=== PATIENT | female | born 1970 | race Caucasian/White ===

== ENCOUNTER 2021-10-05 09:26 | Emergency (ER) | payer OTHER ==
[~2021-10-05] VITALS: Ht 170.2 cm; Wt 63.6 kg
[2021-10-05 09:53] VITALS: TEMP 98.7
[2021-10-05] MEDS ORDERED: LOPRESSOR 225 MG/TAB PO ×2 (10:00→10:49)
[2021-10-05] MEDS ORDERED: NATURAL IRON65 MG PO (10:03)
[2021-10-05] MEDS ORDERED: LEVEMIR100 U/ML SQ ×2 (10:03→10:49)
[2021-10-05] MEDS ORDERED: DOXYCYCLINE 10100 MG PO (10:49)
[2021-10-05 11:30] VITALS: BP 126/77; PULSE 77
== END 2021-10-05 11:30 | disposition home or self-care (01) ==
LOC: COL.ER 09:26
DX: L03.031 Cellulitis of right toe (principal); E11.9 Type 2 diabetes mellitus without complications; Z88.0 Allergy status to penicillin; Z79.4 Long term (current) use of insulin
CPT/HCPCS: J1815

== ENCOUNTER 2023-01-19 10:12 | Inpatient (IN) | payer OTHER ==
[~2023-01-19] VITALS: Ht 170.2 cm; Wt 61.2 kg
[2023-01-19] VITALS (562 sets, daily range): BP systolic 128–140; BP diastolic 72–88; PULSE 107–117; TEMP 97.4–98.4; O2SAT 90–100
[~2023-01-19 10:12] MED LIST: B-12 500 MCG PO; B-D SAFETY GLID1 DE1 SQ; BD ALCOHOL1 SWA MC; DOXYCYCLINE 10100 MG PO; FREESTYLE PREC1 EAC5 MC; GLUCAGON EMERGEN1 M1 SQ; GLUCOSE TEST ST1 DEV MC; LANCETS MC; LEVEMIR100 U/ML SQ; LOPRESSOR 225 MG/TAB PO; MULTI VITAMINS1 TAB; NATURAL IRON65 MG PO; NIX CREME RINSE60 M1 TP; NOVOLOG 100U100 U/M1 SQ
[2023-01-19 10:45] LABS: HEMATOCRIT 44.9 % (37.0-47.0); HEMOGLOBIN 13.4 g/dl (12.5-16.0); MEAN CELL VOLUME 100 fl (80.0-100.0); MEAN CORPUSCULAR HEMOGLOBIN 30 pg (27-31); MEAN CORPUSCULAR HGB CONC 30 g/dl (33.0-37.0); MEAN PLATELET VOLUME 11.1 fl (7.4-10.4); PLATELET COUNT 361 K/mm3 (130-400); RED BLOOD COUNT 4.48 M/mm3 (4.10-5.30); REDCELL DISTRIBUTION WIDTH-CV 13.4 % (11.5-14.5)
[2023-01-19 11:04] LABS: ACETONE,SERUM LARGE
[2023-01-19 11:20] LABS: ALANINE AMINOTRANSFERASE 13 U/L (0-55); ALBUMIN 3.3 gm/dL (3.5-5.0); AST,SGOT 12 U/L (5-34); BILIRUBIN,TOTAL 0.2 mg/dL (0.2-1.2); BLOOD UREA NITROGEN 17 mg/dL (10-20); CALCIUM 8.9 mg/dL (8.4-10.2); CHLORIDE 102 mmol/L (98-107); LIPASE 30 U/L (8-78); POTASSIUM 4.6 mmol/L (3.5-4.5); SODIUM 135 mmol/L (136-145); TOTAL PROTEIN 8.3 gm/dL (6.2-8.1)
[2023-01-19 11:23] LABS: CARBON DIOXIDE < 5 mmol/L (22-29); GLUCOSE 546 mg/dL (70-99)
[2023-01-19 11:30] LABS: TROPONIN-I < 0.010 ng/mL (0.00-0.033)
[2023-01-19 11:38] LABS: ALKALINE PHOSPHATASE 182 U/L (40-150)
[2023-01-19 12:17] LABS: COLLECTION METHOD CLEAN CATCH
[2023-01-19 12:30] LABS: BAND 17 % (0-10); LYMPHOCYTE 26 % (20.0-51.0); METAMYELOCYTE 3 % (0-0); NEUTROPHILS 54 % (42.0-75.2); PLATELET ESTIMATE NORMAL (NORMAL)
[2023-01-19 12:48] LABS: URINE APPEARANCE Clear (CLEAR/HAZY); URINE COLOR Colorless (YELLOW)
[2023-01-19 12:49] LABS: URINE BLOOD TRACE-INTACT (NEGATIVE); URINE GLUCOSE 2+ (NEGATIVE); URINE KETONE 4+ (NEGATIVE); URINE NITRATE Negative (NEGATIVE); URINE PROTEIN(semi-quant) 1+ (NEGATIVE); URINE UROBILINOGEN 0.2 E.U/dL (0.2-1.0)
[2023-01-19 12:50] LABS: SQUAMOUS EPITHELIAL 0-2 /hpf (0-10); URINE RBC 0-2 /hpf (0-2)
[2023-01-19 14:58] LABS: CALCIUM 9.1 mg/dL (8.4-10.2); CREATININE, serum 1.51 mg/dL (0.57-1.11)
[2023-01-19 18:41] LABS: CALCIUM 8.6 mg/dL (8.4-10.2); CREATININE, serum 1.23 mg/dL (0.57-1.11); POTASSIUM 3.2 mmol/L (3.5-4.5)
[2023-01-19 19:42] LABS: ARTERIAL BLD GAS TCO2 CT 14.7; ARTERIAL BLOOD GAS BASE EXCESS -10.9 (-2-2); ARTERIAL BLOOD GAS HCO3 13.8 meq/L (22-26); ARTERIAL BLOOD GAS PCO2 27.6 mmHg (35-45); ARTERIAL BLOOD GAS PO2 90.4 mmHg (80-100); ARTERIAL BLOOD GAS pH 7.32 (7.35-7.45)
--- NOTE | 2023-01-19 20:15 | NUR ---
CHARGE NURSE AND SUPERVISOR OF WAY NOTIFIED THAT PATIENT HAS ACTIVE HEAD LICE. PT HAS ALSO BEEN TREATED FOR RING WORM AND BED BUGS IN THE PAST MONTH. PT'S BELONGINGS DOUBLE BAGGED. YELLOW BAGS REQUESTED FROM [facility]S FOR LINENS.
[2023-01-19 22:19] LABS: CALCIUM 8.3 mg/dL (8.4-10.2); CREATININE, serum 1.18 mg/dL (0.57-1.11); POTASSIUM 3.2 mmol/L (3.5-4.5)
[2023-01-20] VITALS (1170 sets, daily range): BP systolic 118–160; BP diastolic 74–93; PULSE 102–109; TEMP 98.4–99.2; O2SAT 83–100
--- NOTE | 2023-01-20 01:00 | NUR ---
INSULIN DRIP HELD FOR 30 MINUTES. SEE DRIP TITRATION FOR NEW RATE.
--- NOTE | 2023-01-20 01:24 | NUR ---
HEAD LICE TREATMENT WAS PERFORMED. THIS NURSE WAS UNABLE TO REMOVE ALL OF THE NITS IN THE PATIENTS HAIR DUE TO THE LARGE VOLUME OF NITS. JUNE ADULTS WERE COMBED OUT AFTER TREATMENT WAS APPLIED. PT WAS GIVEN A CHG BATH WHILE ON THE C PATIENT'S BEDDING, GOWN, SCD'S, SOCKS & MONITORING EQUIPMENT CHANGED. PATIENT MAY REQUIR FOLLOW UP TREATMENT.
[2023-01-20 01:48] LABS: CALCIUM 8.2 mg/dL (8.4-10.2); CREATININE, serum 0.9 mg/dL (0.57-1.11); POTASSIUM 3.4 mmol/L (3.5-4.5)
[2023-01-20 04:26] LABS: CALCIUM 8.1 mg/dL (8.4-10.2); CREATININE, serum 0.86 mg/dL (0.57-1.11); POTASSIUM 3.2 mmol/L (3.5-4.5)
--- NOTE | 2023-01-20 05:24 | NUR ---
PT STATES SHE HAS GLASSES BUT SHE CAN'T SEE WITH THEM. NEEDS HELP READING THE MENU TO ORDER. MECHANICAL SOFT ADDED TO DIET. PT DOESN'T HAVE ANY TEETH.
--- NOTE | 2023-01-20 06:30 | NUR ---
Report received from ARDEN Millan; patient currently resting in bed with insulin and D5 with 20 mEq of K+ running through her peripheral line; patient has another INT in place. Patient is on room air; no other lines or tubes are in place at this time. Patient is slightly tachycardic this morning with heart rates in between 95-110. All other vital signs are within normal limits.
[2023-01-20 06:42] LABS: BASO % 0.2 % (0.0-2.0); EOS # 0.1 K/mm3 (0.0-0.7); EOS % 1.5 % (0.0-4.0); GRAN # 5.9 K/mm3 (1.4-6.5); GRAN % 72.4 % (42.2-75.2); LYMPH # 1.3 K/mm3 (1.2-3.4); LYMPH % 16.4 % (20.0-51.0); MEAN CORPUSCULAR HGB CONC 35 g/dl (33.0-37.0); MONO # 0.7 K/mm3 (0.1-0.6); MONO % 8.8 % (1.7-9.3); RED BLOOD COUNT 2.98 M/mm3 (4.10-5.30); REDCELL DISTRIBUTION WIDTH-CV 13.3 % (11.5-14.5)
--- NOTE | 2023-01-20 06:42 | NUR ---
REMAINS STABLE ON ROUNDS. RESPIRATIONS EVEN AND UNLABORED. NO SIGN OF DISTRESSS AT THIS TIME. NO LIVE HEAD LICE SEEN AT THIS TIME. A LARGE AMOUNT OF NITS REMAIN. REMAINS ON INSULIN DRIP. DRIP WAS PAUSE FOR 30 MINUTES AT 0100 AND 0400. DRIP CURRENTLY AT 6 UNITS/HR. WILL CONTINUE TO MONITOR.
[2023-01-20 06:48] LABS: HEMATOCRIT 26.4 % (37.0-47.0); HEMOGLOBIN 9.1 g/dl (12.5-16.0); MEAN CELL VOLUME 89 fl (80.0-100.0); MEAN CORPUSCULAR HEMOGLOBIN 31 pg (27-31); PLATELET COUNT 231 K/mm3 (130-400)
[2023-01-20 06:59] LABS: CALCIUM 7.9 mg/dL (8.4-10.2); CREATININE, serum 0.78 mg/dL (0.57-1.11); POTASSIUM 3.4 mmol/L (3.5-4.5)
[2023-01-20] MEDS ORDERED: CLEOCIN HCL300 MG PO (09:45)
[2023-01-20] MEDS ORDERED: NOVOLOG 100U100 U/M1 SQ (09:46)
[2023-01-20] MEDS ORDERED: LEVEMIR100 U/ML SQ (09:46)
--- NOTE | 2023-01-20 09:54 | NUR ---
BAYRON called pt's NOK Abdi Spencer (updated number [phone]) to complete intake due to extra precautions with pt. NOK confirmed pt lives in [place] with him. Pt currently does not have PCP because many are not taking insurance ([employer]) and/or new pts. BAYRON left PCP list with Nurse. Pt does not use o2 or DME. Pt has stairs leading into home but does not typically have issues.Pt uses [facility] in [place] withou issues. Pt does not have DPOA but NOK would like to look over and decide. BAYRON left forms with nurse. Pt will D/C home with spouse. BAYRON left resource list with Nurse.
[2023-01-20 10:01] LABS: CALCIUM 8.4 mg/dL (8.4-10.2); CREATININE, serum 0.96 mg/dL (0.57-1.11); POTASSIUM 3.6 mmol/L (3.5-4.5)
[2023-01-20 12:48] LABS: CREATININE, serum 0.8 mg/dL (0.57-1.11); POTASSIUM 3.4 mmol/L (3.5-4.5)
[2023-01-20 16:28] LABS: CALCIUM 8.3 mg/dL (8.4-10.2); CREATININE, serum 0.83 mg/dL (0.57-1.11); POTASSIUM 3.5 mmol/L (3.5-4.5)
--- NOTE | 2023-01-20 20:15 | NUR ---
Patient resting quietly in bed watching TV. Patient denies pain or discomfort. Vitals within normal limits. Continues to receive IVF; no other medications or drips infusing at this time. Call light within reach. No further needs noted.
[2023-01-21] VITALS: BP 129/75; PULSE 94; TEMP 99
[2023-01-21 04:00] VITALS: BP 135/81; PULSE 106; TEMP 99.5
[2023-01-21 05:12] LABS: BASO % 0.2 % (0.0-2.0); EOS # 0.2 K/mm3 (0.0-0.7); EOS % 3.1 % (0.0-4.0); GRAN % 60.6 % (42.2-75.2); LYMPH # 1.7 K/mm3 (1.2-3.4); MEAN CELL VOLUME 91 fl (80.0-100.0); MEAN CORPUSCULAR HGB CONC 33 g/dl (33.0-37.0); MEAN PLATELET VOLUME 10.2 fl (7.4-10.4); MONO # 0.6 K/mm3 (0.1-0.6); MONO % 9.5 % (1.7-9.3); PLATELET COUNT 204 K/mm3 (130-400); RED BLOOD COUNT 3.19 M/mm3 (4.10-5.30); REDCELL DISTRIBUTION WIDTH-CV 13.9 % (11.5-14.5)
[2023-01-21 05:15] LABS: HEMATOCRIT 28.9 % (37.0-47.0); HEMOGLOBIN 9.6 g/dl (12.5-16.0); MEAN CORPUSCULAR HEMOGLOBIN 30 pg (27-31)
[2023-01-21 05:30] LABS: ALBUMIN 2.2 gm/dL (3.5-5.0); CREATININE, serum 0.65 mg/dL (0.57-1.11); MAGNESIUM 1.6 mg/dL (1.6-2.6); PHOSPHOROUS 1.9 mg/dL (2.3-4.7); POTASSIUM 3.4 mmol/L (3.5-4.5)
[2023-01-21 08:00] VITALS: BP 138/68; PULSE 64; TEMP 98.1
--- NOTE | 2023-01-21 08:56 | NUR ---
Embosser Operator collaborated with Treatment Team to assess Patient for discharge readiness. Physician anticipates that Patient can discharge home pending lab results.
[2023-01-21] MEDS ORDERED: GLUCOSE TEST ST1 DEV MC (10:09)
[2023-01-21] MEDS ORDERED: NIX CREME RINSE60 M1 TP (10:09)
[2023-01-21] MEDS ORDERED: BD ALCOHOL1 SWA MC (10:09)
[2023-01-21] MEDS ORDERED: LANCETS MC (10:09)
[2023-01-21] MEDS ORDERED: B-D SAFETY GLID1 DE1 SQ (10:09)
--- NOTE | 2023-01-21 10:16 | NUR ---
Ophthalmology Technician submitted an APS report Ref #[id number] for infestation in Patient's home.
--- NOTE | 2023-01-21 10:40 | NUR ---
Assistant Drafter submitted a CPS Report # [id number].
--- NOTE | 2023-01-21 11:08 | NUR ---
1000 DISCHARGE INSTRUCTIONS REVIEWED WITH PT. PT CALLED AT THIS TIME. STATES HE WILL PICK PT UP ON WAY HOME. 1046 PT WHEELED OUT IN WC. PT STATED SHE HAD BLACK CROCS BUT COULD NOT FIND THEN. PT STATED HER MAY HAVE TAKEN THEM HOME. WHEN WHEELED OUT TO , STATED HE DID NOT TAKE THEM. THIS NURSE THEN CAME BACK RECHECKED ROOM, LOOKED IN DIRTY UTILITY ROOM IN ICU AND ER. SPOKE WITH ER NURSE THEY DID NOT SEE THEM. TOLD I WOULD REPORT THIS TO MY GEAR STRAIGHTENER AND WOULD FOLLOW UP WITH THEM REGARDING MISSING CROCS. STATES THEY WERE BLACK SIZE 9.
--- NOTE | 2023-01-21 11:12 | NUR ---
Chemical Processing Technician met with Patient at bedside at Patient's request. Patient states that she needs assistance with PCP for her and her children. Patient requested assistance with contact information at [facility]. SW provided contact information on [facility] and [facility]. Patient reports having Lice and ringworm in the home as well as bedbugs recently. Patient is willing to work with [facility] for assistance.
== END 2023-01-21 10:46 | disposition home or self-care (01) | DRG 638 ==
LOC: COL.ER 10:12 → ICU 11:24
PROVIDERS: Emergency Medicine; ADMIT Internal Medicine
DX: E11.10 Type 2 diabetes mellitus with ketoacidosis without coma (principal); N17.9 Acute kidney failure, unspecified; E86.0 Dehydration; E11.65 Type 2 diabetes mellitus with hyperglycemia; Z20.822 Contact with and (suspected) exposure to COVID-19; J02.0 Streptococcal pharyngitis; B85.2 Pediculosis, unspecified; I10 Essential (primary) hypertension; Z88.0 Allergy status to penicillin; Z88.2 Allergy status to sulfonamides; Z79.4 Long term (current) use of insulin; Z79.899 Other long term (current) drug therapy
CPT/HCPCS: J0737; J1815; J3480; J7030; J7120

== ENCOUNTER 2023-03-28 11:22 | Inpatient (IN) | payer SELFPAY ==
[2023-03-28] VITALS (523 sets, daily range): BP systolic 120–129; BP diastolic 75–80; PULSE 100–105; TEMP 97.4–97.7; O2SAT 94–100
[~2023-03-28] VITALS: Ht 167.6 cm; Wt 63.0 kg
[~2023-03-28 11:22] MED LIST changes: +CLEOCIN HCL300 MG PO
[2023-03-28] MEDS ORDERED: LR 1,000 ML IV ONE (11:30)
[2023-03-28 12:04] LABS: HEMOGLOBIN 10.5 g/dl (12.5-16.0); MEAN CELL VOLUME 98 fl (80.0-100.0); MEAN CORPUSCULAR HEMOGLOBIN 28 pg (27-31); MEAN CORPUSCULAR HGB CONC 29 g/dl (33.0-37.0); MEAN PLATELET VOLUME 10.1 fl (7.4-10.4); PLATELET COUNT 368 K/mm3 (130-400); RED BLOOD COUNT 3.74 M/mm3 (4.10-5.30); REDCELL DISTRIBUTION WIDTH-CV 13.3 % (11.5-14.5)
[2023-03-28 12:08] LABS: HEMATOCRIT 36.7 % (37.0-47.0)
[2023-03-28] MEDS ORDERED: Insulin Human Regular/NS 100 ML IV ONE (12:15)
[2023-03-28 12:17] LABS: ALANINE AMINOTRANSFERASE 9 U/L (0-55); ALBUMIN 2.9 gm/dL (3.5-5.0); ALKALINE PHOSPHATASE 158 U/L (40-150); AST,SGOT 11 U/L (5-34); BILIRUBIN,TOTAL 0.2 mg/dL (0.2-1.2); BLOOD UREA NITROGEN 13 mg/dL (10-20); CHLORIDE 104 mmol/L (98-107); CREATININE, serum 1.33 mg/dL (0.57-1.11); LIPASE 42 U/L (8-78); SODIUM 131 mmol/L (136-145); TOTAL PROTEIN 8.1 gm/dL (6.2-8.1)
[2023-03-28 12:19] LABS: CARBON DIOXIDE < 6 mmol/L (22-29); GLUCOSE 411 mg/dL (70-99)
[2023-03-28 12:21] LABS: ACETONE,SERUM MODERATE
[2023-03-28 12:27] LABS: BAND 6 % (0-10); LYMPHOCYTE 23 % (20.0-51.0); METAMYELOCYTE 2 % (0-0); NEUTROPHILS 67 % (42.0-75.2); PLATELET ESTIMATE NORMAL (NORMAL)
[2023-03-28] MEDS ORDERED: NS 1,000 ML IV ONE (12:30)
[2023-03-28] MEDS ORDERED: Insulin Human Regular/NS 100 ML IV SCH (13:45)
[2023-03-28] MEDS ORDERED: NS 1,000 ML IV SCH (13:45)
[2023-03-28] MEDS ORDERED: D5W 1,000 ML IV SCH (13:45)
[2023-03-28] MEDS ORDERED: Pantoprazole 40 MG in NS 10 ML IV SCH (15:30)
--- NOTE | 2023-03-28 15:30 | NUR ---
PATIENT ARRIVED FROM THE ED ON A STRETCHER. SHE WAS ABLE TO MOVE TO THE NEW BED WITH SOME ASSISTANCE. PT DOES APPEAR TO BE A LITTLE DROWSY. SHE WAKES UP WHEN SPOKEN TO AND IS ALERT AND ORIENTED. SHE ANSWERS ALL QUESTIONS APPROPRIATLEY. PT HAS ONE IV INFUSING INSULIN AND NS. PT IS NOT ACCOMPANIED BY FAMILY AT THIS TIME. SHE DOES COMPLAIN OF THROAT PAIN. VITAL SIGNS ARE STABLE.
[2023-03-28 15:33] LABS: PHOSPHOROUS 3.9 mg/dL (2.3-4.7)
[2023-03-28] MEDS ORDERED: Doxycycline Monohydrate 100 MG CAP PO SCH (16:47)
[2023-03-28 17:14] LABS: BLOOD UREA NITROGEN 13 mg/dL (10-20); CALCIUM 8.4 mg/dL (8.4-10.2); CHLORIDE 111 mmol/L (98-107); CREATININE, serum 1.14 mg/dL (0.57-1.11); GLUCOSE 258 mg/dL (70-99); POTASSIUM 3.5 mmol/L (3.5-4.5); SODIUM 133 mmol/L (136-145)
[2023-03-28 17:21] LABS: CARBON DIOXIDE < 6 mmol/L (22-29)
[2023-03-28] MEDS ORDERED: *Potassium Replacement Protocol MC SCH (17:30)
[2023-03-28] MEDS ORDERED: Potassium Bicarbonate/Citrate 20 MEQ Effervescent TAB PO SCH ×2 (17:30→23:45)
--- NOTE | 2023-03-28 18:00 | NUR ---
Per Dr. Davis it is ok to hold off on placing sheikh catheter if patient is able to void on her own.
[2023-03-28 18:13] LABS: COLLECTION METHOD CLEAN CATCH
[2023-03-28 18:55] LABS: BLOOD UREA NITROGEN 11 mg/dL (10-20); CALCIUM 8.3 mg/dL (8.4-10.2); CHLORIDE 112 mmol/L (98-107); CREATININE, serum 1.07 mg/dL (0.57-1.11); GLUCOSE 256 mg/dL (70-99); POTASSIUM 3.4 mmol/L (3.5-4.5); SODIUM 134 mmol/L (136-145)
[2023-03-28 19:00] LABS: CARBON DIOXIDE < 6 mmol/L (22-29)
--- NOTE | 2023-03-28 19:00 | NUR ---
ON INSULIN DRIP. D5W FOR FLUIDS. HOURLY BLOOD SUGAR CHECKS. Q 2HR BMP. MAG WAS ADDED TO UPCOMING BMP. PT CHECKED FOR HEADLICE, RING WORM AND BED BUGS, SHE HAD HEAD LICE HER LAST ADMISSION. PT STATES SHE CAN'T AFFORD HER INSULIN AND IS NOT FOLLOWING A DIABETIC DIET. CONSULTS WERE PLACED AGAIN, BUT PATIENT HAS TO TAKE RESPONSIBILITY FOR HER DISEASE PROCESS. THIS NURSE DISCUSSED WITH HER THAT WE CAN GIVE HER THE TOOLS, BUT SHE MUST BE WILLING TO USE THEM.
[2023-03-28 19:01] LABS: URINE APPEARANCE CLEAR (CLEAR/HAZY); URINE BLOOD 1+ (NEGATIVE); URINE COLOR YELLOW (YELLOW); URINE GLUCOSE 3+ (NEGATIVE); URINE KETONE 4+ (NEGATIVE); URINE NITRATE NEGATIVE (NEGATIVE); URINE PROTEIN(semi-quant) 1+ (NEGATIVE); URINE UROBILINOGEN 0.2 E.U/dL (0.2-1.0)
[2023-03-28 19:05] LABS: TRICYCLIC ANTIDEPRESS URINE NEGATIVE (NEGATIVE)
[2023-03-28 19:35] LABS: URINE RBC 0-2 /hpf (0-2); URINE WBC 0-2 /hpf (0-2)
[2023-03-28 19:36] LABS: URINE BACTERIA MODERATE /hpf (NONE SEEN)
[2023-03-28 20:19] LABS: CALCIUM 7.7 mg/dL (8.4-10.2); CREATININE, serum 0.98 mg/dL (0.57-1.11); MAGNESIUM 1.6 mg/dL (1.6-2.6); POTASSIUM 3.3 mmol/L (3.5-4.5)
[2023-03-28 22:19] LABS: CALCIUM 8.2 mg/dL (8.4-10.2); CREATININE, serum 1.05 mg/dL (0.57-1.11); POTASSIUM 3.2 mmol/L (3.5-4.5)
[2023-03-29] VITALS (853 sets, daily range): BP systolic 113–137; BP diastolic 69–85; PULSE 104–115; TEMP 97.4–98.6; O2SAT 92–100
[2023-03-29] MEDS ORDERED: Acetaminophen 325 MG TAB PO PRN (00:45)
[2023-03-29 01:55] LABS: CALCIUM 8.4 mg/dL (8.4-10.2); CREATININE, serum 1.01 mg/dL (0.57-1.11); POTASSIUM 3.1 mmol/L (3.5-4.5)
[2023-03-29 04:09] LABS: MEAN CORPUSCULAR HGB CONC 33 g/dl (33.0-37.0); MEAN PLATELET VOLUME 9.4 fl (7.4-10.4); RED BLOOD COUNT 2.98 M/mm3 (4.10-5.30); REDCELL DISTRIBUTION WIDTH-CV 13.1 % (11.5-14.5)
[2023-03-29 04:16] LABS: HEMATOCRIT 25.4 % (37.0-47.0); MEAN CELL VOLUME 85 fl (80.0-100.0); MEAN CORPUSCULAR HEMOGLOBIN 28 pg (27-31)
[2023-03-29 04:17] LABS: HEMOGLOBIN 8.4 g/dl (12.5-16.0); PLATELET COUNT 252 K/mm3 (130-400)
[2023-03-29 04:43] LABS: BAND 6 % (0-10); LYMPHOCYTE 10 % (20.0-51.0); NEUTROPHILS 77 % (42.0-75.2); PLATELET ESTIMATE NORMAL (NORMAL)
[2023-03-29 04:55] LABS: CALCIUM 8.7 mg/dL (8.4-10.2); CREATININE, serum 0.92 mg/dL (0.57-1.11); POTASSIUM 3.3 mmol/L (3.5-4.5)
[2023-03-29] MEDS ORDERED: Potassium Bicarbonate/Citrate 20 MEQ Effervescent TAB PO SCH ×2 (05:30→19:45)
[2023-03-29 06:17] LABS: CALCIUM 8.8 mg/dL (8.4-10.2); CREATININE, serum 0.89 mg/dL (0.57-1.11); POTASSIUM 3.2 mmol/L (3.5-4.5)
--- NOTE | 2023-03-29 06:17 | NUR ---
PT REMAINS STABLE ON ROUNDS. INSULIN AND GLUCOSE DRIPS INFUSING. GAP CLOSED AT 7. CO2 15, TRENDING TOWARD NORMAL. CRITICAL CO2'S NOT CALLED THEY WERE EXPECTED VALUES. PROVIDED CALLED OVER NIGHT FOR TYLENOL ORDER. CALLED THIS AM TO CHANGE BMP FROM FARHAT 2HR TO EVERY 4HR. Q 4HR BMP TO STOP AT 2200 03/29/23. WILL DISCUSS WITH DAYSHIFT RN THAT STOP TIME OF BMP. NO SIGN OF DISTRESS AT THIS TIME.
--- NOTE | 2023-03-29 07:00 | NUR ---
REPORT RECEIVED FROM ARDEN GANDARA. PT RESTING IN BED, VSS. INSULIN AND FLUIDS INFUSING ORDERED TO PERIPHERAL IV IN L WRIST. PT IS DROWSY BUT WAKES EASILY AND IS ORIENTED. USES CALL LIGHT FOR NEEDS.
--- NOTE | 2023-03-29 09:13 | NUR ---
wood and wood products factory worker met with patient to discuss discharge planning. Pt reports she lives in [place] with 8 other people. She states her NOK, is , Abdi [phone]. Pt does not have a PCP, but is aware of the wellness clinic and [facility]. Pt obtains medications from [facility] with difficulties. She recently lost her insurance and cannot afford her insulin. SW advised [facility] and patient states she uses this. She reports she was informed by that the [facility] can assist with low cost insulin. Pt reports she is independent with ADLS and uses no DME, but wants a cane and knows how to obtain one. Pt does not have a DPOA-HC and declined one at this time. Pt was informed PT/OT will visit with her to asses mobility. PT/OT pending BAYRON left a voicemail to Supervisor Television Chassis Repair Reyna to inform pt has no insurance. Discharge Plan: TBD
[2023-03-29] MEDS ORDERED: MAG DELAY64 M1 PO (09:55)
[2023-03-29] MEDS ORDERED: VITAMIN D 400400 IU PO (09:55)
[2023-03-29] MEDS ORDERED: Glucagon 1 MG VIAL IM PRN (11:00)
[2023-03-29] MEDS ORDERED: Dextrose (Glucose) 15 GM (4 x 3.75 GM) Chewable TABLET PACK PO PRN (11:00)
[2023-03-29] MEDS ORDERED: Dextrose 50% Water 25 GM/50 ML SYRINGE IV PRN (11:00)
[2023-03-29 11:01] LABS: CALCIUM 9.3 mg/dL (8.4-10.2); CREATININE, serum 0.85 mg/dL (0.57-1.11); POTASSIUM 3.8 mmol/L (3.5-4.5)
--- NOTE | 2023-03-29 11:06 | NUR ---
DISCUSSED WITH PATIENT THE BENEFIT OF A CGM WHEN SHE GETS INSURANCE, SHE HAS APPLIED FOR IT AND IT IS PROCESSING. PATIENT STATED SHE DIDNT KNOW IF SHE WOULD WANT THAT THING STUCK IN HER ARM ALL THE TIME. EDUCATED PATIENT ON HEALTHY SNACKS SHE CAN EAT AT HOME. GAVE PATIENT A CONTOUR NEXT MACHINE TO TAKE HOME AND USE UPON DISCHARGE. SHE STATES SHE CANT AFFORD HER INSULIN SO SHE ONLY TAKES IT EVERY OTHER DAY AND TRIES TO EAT HEALTHY SHE CAN ON A BUDGET. REFERRAL REQUEST FOR OUTPATIENT SENT TO [facility] SHE IS SUSEPTABLE TO COMING IN AND SEEING US OUTPATIENT WHEN SHE GETS D/DANY. ARRON, MSN, RN
[2023-03-29] MEDS ORDERED: Insulin Aspart (NovoLOG) SQ SCH ×2 (12:00→17:00)
[2023-03-29 14:28] LABS: CREATININE, serum 0.83 mg/dL (0.57-1.11); POTASSIUM 3.9 mmol/L (3.5-4.5)
--- NOTE | 2023-03-29 17:00 | NUR ---
PATENIT ARRIVED TO UNIT AWAKE ALERT AND ORIENTED. VSS. PATIENT DENIES ANY NEEDS OR COMPLAINTS AT THIS TIME. PATEINT ORIENTED TO ROOM. IV ZOSYN INFUSING (SEE EMAR FOR DETAILS).CALL LIGHT WITHIN REACH.
--- NOTE | 2023-03-29 18:30 | NUR ---
BEDSIDE REPORT RECEIVED BY SAULO HER. PATIENT RESTING IN BED WITH FAMILY AT BEDSIDE. PATIENT DENIES ANY NEEDS OR CONCERNS AT THIS TIME.
[2023-03-29 18:42] LABS: CALCIUM 9.1 mg/dL (8.4-10.2); CREATININE, serum 0.8 mg/dL (0.57-1.11); POTASSIUM 3.4 mmol/L (3.5-4.5)
[2023-03-29] MEDS ORDERED: *Potassium Replacement Protocol MC SCH (19:45)
--- NOTE | 2023-03-29 21:00 | NUR ---
PATIENT RESTING IN BED WATCHING TV. ALERT AND ORIENTED. SHIFT ASSESSEMENT COMPLETE. IV MEDICATIONS INFUSING PER MAR VIA LEFT WRIST. NO REDNESS, SWELLING, OR DRAINAGE NOTED. +1 EDEMA TO BLE. PATIENT AMBULATED TO BR. GAIT STEADY. PATINET DENIES PAIN OR DISCOMFORT. WILL MONITOR
[2023-03-29 22:22] LABS: CALCIUM 8.7 mg/dL (8.4-10.2); CREATININE, serum 0.75 mg/dL (0.57-1.11); POTASSIUM 4.1 mmol/L (3.5-4.5)
[2023-03-30 03:19] VITALS: BP 114/74; PULSE 120; TEMP 99.5
--- NOTE | 2023-03-30 05:57 | NUR ---
PATIENT RESTING IN BED. UNEVENTFUL NIGHT. DENIES NEEDS OR CONCERNS AT THIS TIME.
[2023-03-30 06:39] LABS: BASO % 0.5 % (0.0-2.0); EOS # 0.1 K/mm3 (0.0-0.7); EOS % 1.9 % (0.0-4.0); GRAN % 64.9 % (42.2-75.2); LYMPH # 1.3 K/mm3 (1.2-3.4); MEAN CELL VOLUME 87 fl (80.0-100.0); MEAN CORPUSCULAR HGB CONC 32 g/dl (33.0-37.0); MEAN PLATELET VOLUME 9.9 fl (7.4-10.4); MONO # 0.7 K/mm3 (0.1-0.6); MONO % 10.6 % (1.7-9.3); PLATELET COUNT 264 K/mm3 (130-400); RED BLOOD COUNT 3.07 M/mm3 (4.10-5.30); REDCELL DISTRIBUTION WIDTH-CV 13.8 % (11.5-14.5)
[2023-03-30 06:51] LABS: HEMATOCRIT 26.6 % (37.0-47.0); HEMOGLOBIN 8.6 g/dl (12.5-16.0); MEAN CORPUSCULAR HEMOGLOBIN 28 pg (27-31)
--- NOTE | 2023-03-30 06:55 | NUR ---
PT RESTING IN BED WATCHING TV. PT IS ON RA. PT IS SR ON TELE. PT IS AXOX3. PT HAS CALL LIGHT WITHIN REACH AND INSTRUCTED TO CALL [facility] ALL NEEDS.
[2023-03-30 08:05] VITALS: BP 113/63; PULSE 114; TEMP 97.8
[2023-03-30 08:55] VITALS: BP_SYST 113
[2023-03-30 12:13] VITALS: BP 119/76; PULSE 107; TEMP 98.2
[2023-03-30] MEDS ORDERED: GLUCOPHAGE500 MG/TAB PO (12:30)
[2023-03-30] MEDS ORDERED: GLUCAGON EMERGEN1 M1 SQ (12:30)
[2023-03-30] MEDS ORDERED: BD ALCOHOL1 SWA MC (12:37)
[2023-03-30] MEDS ORDERED: GLUCOSE TEST ST1 DEV MC (12:37)
[2023-03-30] MEDS ORDERED: B-D SAFETY GLID1 DE1 SQ (12:37)
[2023-03-30] MEDS ORDERED: LANCETS MC (12:37)
[2023-03-30] MEDS ORDERED: INSULIN GL100 UNIT/1 SQ (12:37)
[2023-03-30] MEDS ORDERED: AMOXICILLIN 8751 TAB PO (12:37)
[2023-03-30] MEDS ORDERED: DOXYCYCLINE 10100 MG PO (12:37)
[2023-03-30] MEDS ORDERED: CONTROL SOLUTI1 EAC1 MC (12:37)
[2023-03-30] MEDS ORDERED: GLUTOSE 1515 GM PO (12:37)
[2023-03-30 13:00] VITALS: BP_SYST 119
[2023-03-30] MEDS ORDERED: LEVAQUIN 750MG750 M1 PO (13:02)
--- NOTE | 2023-03-30 13:53 | NUR ---
BARYON CONTACTED REGARDING MEDICATIONS AND VOUCHER. BAYRON FAXED ALL TO [facility]. PT UPDATED, DIRECTIONS AND PHONE NUMBER FOR [facility] GIVEN TO PT. NARCISA'S DC'D. DISCHARGE INSTRUCTIONS DISCUSSED WITH PT. DISCUSSED THE NEED FOR PT TO MONITOR BLOOD SUGAR AND TREAT ORDERED. ALL QUESTIONS ANSWERED. PT WHEELED OUT FOR DISCHARGE BY SRINATH KUMAR.
--- NOTE | 2023-03-30 16:05 | NUR ---
SW met with patient for intake. Patient shared that she lives with spouse and children in [place]. Pending [employer] application and has recieved FA application for hospital assistance. No current DMEs and independent with ADLs No current PCP - SW provided list and resource list. Voucher for [facility] was issued for medication assist and cost verified was $414. Patient was informed about voucher and also that one medication would not be available until Saturday for supervisor picking crew. Discharge plan: home today with spouse
== END 2023-03-30 14:00 | disposition home or self-care (01) | DRG 637 ==
LOC: COL.ER 11:22 → ICU 13:44 → MEDICAL 03-29 17:21
PROVIDERS: Physician Assistant; ADMIT Internal Medicine
DX: E10.10 Type 1 diabetes mellitus with ketoacidosis without coma (principal); J18.9 Pneumonia, unspecified organism; Z20.822 Contact with and (suspected) exposure to COVID-19; I10 Essential (primary) hypertension; Z88.0 Allergy status to penicillin; Z88.2 Allergy status to sulfonamides; Z79.4 Long term (current) use of insulin; Z79.899 Other long term (current) drug therapy; Z23 Encounter for immunization
CPT/HCPCS: C9113; J1650; J1815; J2543; J7030; J7070; J7120

== ENCOUNTER 2023-05-26 11:35 | Inpatient (IN) | payer OTHER ==
[2023-05-26] VITALS (194 sets, daily range): BP systolic 107–135; BP diastolic 75–79; PULSE 105–117; TEMP 97.8–97.9; O2SAT 86–100
[~2023-05-26] VITALS: Ht 170.2 cm; Wt 61.0 kg
[~2023-05-26 11:35] MED LIST changes: +AMOXICILLIN 8751 TAB PO; +CONTROL SOLUTI1 EAC1 MC; +DUO-KAPS1 CAP PO; +GLUCOPHAGE500 MG/TAB PO; +GLUTOSE 1515 GM PO; +INSULIN GL100 UNIT/1 SQ; +LEVAQUIN 750MG750 M1 PO; +MAG DELAY64 M1 PO; -MULTI VITAMINS1 TAB; +VITAMIN D362.5 MC1 PO
[2023-05-26] MEDS ORDERED: NS 1,000 ML IV ONE (12:00)
[2023-05-26 12:45] LABS: ALANINE AMINOTRANSFERASE 8 U/L (0-55); ALBUMIN 2.8 g/dL (3.5-5.0); ALKALINE PHOSPHATASE 154 U/L (40-150); AST,SGOT 8 U/L (5-34); BILIRUBIN,TOTAL 0.2 mg/dL (0.2-1.2); BLOOD UREA NITROGEN 11 mg/dL (10-20); C-REACTIVE PROTEIN 15.31 mg/dL (0.00-0.50); CALCIUM 9.2 mg/dL (8.4-10.2); CHLORIDE 107 mEq/L (98-107); GLUCOSE 373 mg/dL (70-99); POTASSIUM 4.4 mEq/L (3.5-4.5); SODIUM 134 mEq/L (136-145); TOTAL PROTEIN 8.4 g/dl (6.2-8.1)
[2023-05-26 12:48] LABS: HEMATOCRIT 40.6 % (37.0-47.0); HEMOGLOBIN 11.8 g/dl (12.5-16.0); MEAN CELL VOLUME 90 fl (80.0-100.0); MEAN CORPUSCULAR HEMOGLOBIN 26 pg (27-31); MEAN CORPUSCULAR HGB CONC 29 g/dl (33.0-37.0); PLATELET COUNT 373 K/mm3 (130-400); RED BLOOD COUNT 4.53 M/mm3 (4.10-5.30); REDCELL DISTRIBUTION WIDTH-CV 14.8 % (11.5-14.5)
[2023-05-26 12:50] LABS: TROPONIN-I < 0.010 ng/mL (0.00-0.033)
[2023-05-26] MEDS ORDERED: Insulin Human Regular/NS 100 ML IV ONE (13:00)
[2023-05-26] MEDS ORDERED: LR 1,000 ML IV ONE (13:00)
[2023-05-26 13:24] LABS: BAND 15 % (0-10); BASOPHIL 1 % (0-2); LYMPHOCYTE 17 % (20.0-51.0); METAMYELOCYTE 3 % (0-0); NEUTROPHILS 64 % (42.0-75.2); PLATELET ESTIMATE NORMAL (NORMAL)
[2023-05-26] MEDS ORDERED: Insulin Human Regular/NS 100 ML IV SCH (13:45)
[2023-05-26] MEDS ORDERED: NS 1,000 ML IV SCH ×2 (13:45→14:00)
[2023-05-26] MEDS ORDERED: D5 1/2 NS 1,000 ML IV SCH (13:45)
[2023-05-26] MEDS ORDERED: Oseltamivir 75 MG CAP PO SCH (13:48)
[2023-05-26] MEDS ORDERED: Ondansetron 4 MG/2 ML VIAL IV PRN (14:00)
[2023-05-26] MEDS ORDERED: cefTRIAXone 1 G in Water For Injection,Sterile 10 ML IV ONE (14:00)
[2023-05-26] MEDS ORDERED: Heparin 5,000 UNITS/ML 1 ML VIAL SQ SCH (14:00)
[2023-05-26] MEDS ORDERED: Acetaminophen 500 MG TAB PO PRN (14:00)
[2023-05-26] MEDS ORDERED: INSLANT SQ (14:49)
[2023-05-26 16:47] LABS: CALCIUM 8.3 mg/dL (8.4-10.2); POTASSIUM 3.7 mEq/L (3.5-4.5)
[2023-05-26 18:23] LABS: CALCIUM 8.4 mg/dL (8.4-10.2); CREATININE, serum 1.01 mg/dL (0.57-1.11); POTASSIUM 3.5 mEq/L (3.5-4.5)
[2023-05-26 19:34] LABS: COLLECTION METHOD CLEAN CATCH
--- NOTE | 2023-05-26 19:35 | NUR ---
Received report from ARDEN Jones. Pt is alert and resting in bed with the call light within reach and bed alarms on. Pt has insulin, NS, and D5 1/2 NS running at this time. Pt's vitals are stable at this time. Will continue with pt care.
[2023-05-26 19:45] LABS: URINE APPEARANCE CLEAR (CLEAR/HAZY); URINE BLOOD NEGATIVE (NEGATIVE); URINE COLOR YELLOW (YELLOW); URINE GLUCOSE 3+ (NEGATIVE); URINE KETONE 4+ (NEGATIVE); URINE NITRATE NEGATIVE (NEGATIVE); URINE PROTEIN(semi-quant) 2+ (NEGATIVE); URINE UROBILINOGEN 0.2 E.U/dL (0.2-1.0)
[2023-05-26 20:01] LABS: SQUAMOUS EPITHELIAL 0-2 /hpf (0-10); URINE RBC 0-2 /hpf (0-2); URINE WBC 0-2 /hpf (0-2)
[2023-05-26 20:21] LABS: CALCIUM 8.2 mg/dL (8.4-10.2); CREATININE, serum 1.07 mg/dL (0.57-1.11); POTASSIUM 3.3 mEq/L (3.5-4.5)
[2023-05-26] MEDS ORDERED: *Potassium Replacement Protocol MC SCH (20:30)
[2023-05-26] MEDS ORDERED: Potassium Bicarbonate/Citrate 20 MEQ Effervescent TAB PO SCH (20:30)
[2023-05-26 20:55] LABS: TRICYCLIC ANTIDEPRESS URINE NEGATIVE (NEGATIVE)
[2023-05-26] MEDS ORDERED: Sodium Bicarbonate 650 MG TAB PO SCH (21:00)
[2023-05-26 22:22] LABS: CALCIUM 8.3 mg/dL (8.4-10.2); CREATININE, serum 1.04 mg/dL (0.57-1.11); POTASSIUM 3.3 mEq/L (3.5-4.5)
[2023-05-27] VITALS (650 sets, daily range): BP systolic 126–142; BP diastolic 72–87; PULSE 100–113; TEMP 97.5–99.4; O2SAT 77–100
[2023-05-27 00:12] LABS: CALCIUM 8.2 mg/dL (8.4-10.2); CREATININE, serum 0.99 mg/dL (0.57-1.11); POTASSIUM 3.3 mEq/L (3.5-4.5)
[2023-05-27 04:27] LABS: CALCIUM 8.2 mg/dL (8.4-10.2); CREATININE, serum 0.78 mg/dL (0.57-1.11)
[2023-05-27] MEDS ORDERED: Potassium Bicarbonate/Citrate 20 MEQ Effervescent TAB PO SCH (05:45)
--- NOTE | 2023-05-27 06:49 | NUR ---
Pt had an uneventful night. Pt's vitals have been stable throughout the night. Pt is still on insulin drip with a carrier of NS. D5 1/2 NS is also running at this time. Pt is alert and on room air. Pt is currently resting in bed with the call light within reach and bed alarms on. Will give report to day shift nurse.
[2023-05-27 07:11] LABS: BASO % 0.3 % (0.0-2.0); EOS # 0.1 K/mm3 (0.0-0.7); EOS % 0.9 % (0.0-4.0); GRAN % 71.5 % (42.2-75.2); HEMOGLOBIN 10.1 g/dl (12.5-16.0); LYMPH # 1.3 K/mm3 (1.2-3.4); MEAN CORPUSCULAR HEMOGLOBIN 26 pg (27-31); MEAN CORPUSCULAR HGB CONC 32 g/dl (33.0-37.0); MEAN PLATELET VOLUME 9.4 fl (7.4-10.4); MONO # 0.6 K/mm3 (0.1-0.6); MONO % 8.1 % (1.7-9.3); PLATELET COUNT 281 K/mm3 (130-400); REDCELL DISTRIBUTION WIDTH-CV 14.6 % (11.5-14.5)
[2023-05-27 07:17] LABS: MEAN CELL VOLUME 82 fl (80.0-100.0)
[2023-05-27 07:22] LABS: CALCIUM 8.7 mg/dL (8.4-10.2); CREATININE, serum 0.76 mg/dL (0.57-1.11); POTASSIUM 3.4 mEq/L (3.5-4.5)
[2023-05-27 07:39] LABS: MAGNESIUM 1.6 mg/dL (1.6-2.6); PHOSPHOROUS < 0.9 mg/dL (2.3-4.7)
[2023-05-27] MEDS ORDERED: Multivitamin TAB PO SCH (09:00)
[2023-05-27] MEDS ORDERED: Cyanocobalamin (Vit B-12) 1,000 MCG TAB PO SCH (09:00)
--- NOTE | 2023-05-27 09:04 | NUR ---
Driver Supervisor met with patient at bedside to discuss discharge planning. Patient sitting up in bed, alert and oriented x 4, coughing continuously throughout visit. Patient verified that she lives at home with her Abdi ([phone]) and 6 of their 10 chidren. Patient states she utilizes the health clinic and does not have a PCP at this time. Patient uses [facility] and uses a cane at home as needed. Patient has insurance coverage through [facility] which covers her medications. Patient does not have a DPOA and is not interested in completing one at this time. Patient will discharge to home when medically stable. Discharge Plan: home
[2023-05-27] MEDS ORDERED: Benzonatate 100 MG CAP PO PRN (10:00)
[2023-05-27] MEDS ORDERED: guaiFENesin/Dextromethorphan Oral Soln 200-20 MG/10 ML UD PO PRN (10:00)
[2023-05-27] MEDS ORDERED: Amoxicillin 500 MG CAP PO SCH (10:30)
[2023-05-27 10:43] LABS: CALCIUM 8.1 mg/dL (8.4-10.2); CREATININE, serum 0.71 mg/dL (0.57-1.11); POTASSIUM 3.8 mEq/L (3.5-4.5)
[2023-05-27] MEDS ORDERED: Glucagon 1 MG VIAL IM PRN (12:45)
[2023-05-27] MEDS ORDERED: 1/2 NS 1,000 ML IV SCH (12:45)
[2023-05-27] MEDS ORDERED: Insulin Glargine-ygfn (Lantus) SQ SCH (12:45)
[2023-05-27] MEDS ORDERED: Dextrose 50% Water 25 GM/50 ML SYRINGE IV PRN (12:45)
[2023-05-27] MEDS ORDERED: Dextrose (Glucose) 15 GM (4 x 3.75 GM) Chewable TABLET PACK PO PRN (12:45)
--- NOTE | 2023-05-27 12:58 | NUR ---
RIGHT SIDE THORACENTESIS COMPLETED BY DR. CORONEL ASSISTED BY ANGEL ALCOCER.
--- NOTE | 2023-05-27 13:30 | NUR ---
PATIENT IS A AND O X4 AND ON ROOM AIR. PATIENT IS COUGHING AND COMPLAINS OF A SORE THROAT. NO OTHER PAIN OR COMPLIANTS PER PATIENT. BED IN LOW POSITION AND CALL LIGHT WITHIN REACH. PATIENT WILL BE TRANSFERRING TO MEDICAL FLOOR ONCE RN GIVEN A ROOM. INSULIN GTT IS OFF.
--- NOTE | 2023-05-27 15:30 | NUR ---
PATIENT TRANSFERRED TO [place] [id number]. RN, ANGELINA, CALLED WITH PATIENT REPORT PRIOR TO TRANSFER. PATIENT ALERT AND ORIENTED X4 AND NOT IN DISTRESS UPON TRANSFER. ANGELINA AWARE OF PATIENTS ARRIVAL.
[2023-05-27] MEDS ORDERED: Insulin Lispro (HumaLOG) SQ SCH (17:00)
--- NOTE | 2023-05-27 18:07 | NUR ---
Patient is resting in bed, talking by phone to her son. She is getting fluids per orders. States her glucose levels are chronically high, and now that is 100-160's she feels it is abnormal. States she has some problems in her throat and left ear while swallowing. Refuses any pain med at this time. Report will be given to night RN.
--- NOTE | 2023-05-27 20:30 | NUR ---
UPON ASSESSMENT, JCARLOS WAS AWAKE AND AXOX 4 IN BED . BG 202- 6 UNITS NOVOLOG GIVEN. PATIENT HAD SEVERAL TISSUES WITH SPUTUM BEDSIDE. NO EVIDENCE OF HEMOPYSIS. PATIENT STATES THROAT SORENESS HAS IMPROVED AND AIRWAY IS PATENT. SHE DENIES SOA. VS ARE WNL NO FURTHER NEEDS STATED AT THIS TIME. CALL LIGHT WITHIN REACH.
--- NOTE | 2023-05-27 20:30 | NUR ---
ALERTED BY PCT, PATIENT C/O LEAKING IV SITE. ENTERED PATIENT'S ROOM RT AC LEAKING 1/2 NS, SWITCHED TO LT WRIST. NO FURTHER COMPLICATIONS NOTED.
[2023-05-27 23:09] LABS: CREATININE, serum 0.63 mg/dL (0.57-1.11); POTASSIUM 3.5 mEq/L (3.5-4.5)
[2023-05-27] MEDS ORDERED: Potassium Bicarbonate/Citrate 20 MEQ Effervescent TAB PO ONE (23:15)
[2023-05-27] MEDS ORDERED: *Potassium Replacement Protocol MC SCH (23:15)
[2023-05-28 01:00] VITALS: BP_SYST 134
[2023-05-28 01:27] LABS: ANION GAP 7 mmol/L (7-16); CALCIUM 8.1 mg/dL (8.4-10.2); CHLORIDE 112 mEq/L (98-107); CREATININE, serum 0.57 mg/dL (0.57-1.11); GLUCOSE 166 mg/dL (70-99); POTASSIUM 3.9 mEq/L (3.5-4.5); SODIUM 140 mEq/L (136-145)
[2023-05-28 01:28] LABS: BLOOD UREA NITROGEN < 5 mg/dL (10-20)
--- NOTE | 2023-05-28 01:51 | NUR ---
ROUNDED ON PATIENT. SLEEPING SOUNDLY SUPINE. NO SIGNS OF DISTRESS.
[2023-05-28] MEDS ORDERED: Potassium Bicarbonate/Citrate 20 MEQ Effervescent TAB PO ONE (02:45)
[2023-05-28] MEDS ORDERED: *Potassium Replacement Protocol MC SCH (02:45)
--- NOTE | 2023-05-28 02:48 | NUR ---
PaTIENT C/O SORE THROAT 4/10 AND COUGH. TESSALON PERLS, ROBOTUSSIN AND TYLENOL ADMINISTERED.
[2023-05-28 03:35] VITALS: BP 132/80; PULSE 100; TEMP 97.6
[2023-05-28 04:42] VITALS: BP_SYST 132
[2023-05-28 07:14] VITALS: BP 142/86; PULSE 98; TEMP 98.2
--- NOTE | 2023-05-28 07:30 | NUR ---
PATIENT AWAKE AND ALERT, SITTING UP IN BED, PATIENT FINISHED BREAKFAST. IVF INFUSING PER ORDER (SEE EMAR.) PATIENT DENIES ANY NEEDS OR COMPLAINTS AT THIS TIME. FALL PRECAITIONS IN PLACE.
[2023-05-28 07:42] LABS: ANION GAP 6 mmol/L (7-16); CALCIUM 8.1 mg/dL (8.4-10.2); CHLORIDE 112 mEq/L (98-107); CREATININE, serum 0.53 mg/dL (0.57-1.11); GLUCOSE 94 mg/dL (70-99); MAGNESIUM 1.6 mg/dL (1.6-2.6); POTASSIUM 3.3 mEq/L (3.5-4.5); SODIUM 141 mEq/L (136-145)
[2023-05-28 07:44] LABS: BLOOD UREA NITROGEN < 5 mg/dL (10-20)
[2023-05-28 09:00] VITALS: BP_SYST 142
[2023-05-28] MEDS ORDERED: Magnesium Sulfate 1 GM/100 ML IV Soln IV SCH (09:30)
--- NOTE | 2023-05-28 09:40 | NUR ---
PHYSICAL THERPAY INFORMED BY THIS RN THAT MD WOULD LIKE A BPV SCREEN DONE ON THIS PATIENT.
--- NOTE | 2023-05-28 09:40 | NUR ---
farmworker field crop attended clinical rounding and was informed pt can discharge today once her dizziness subsides. No further concerns. Discharge Plan: home
--- NOTE | 2023-05-28 09:53 | NUR ---
PER PHYSICIAL THERAPIST, PATIENTS BPV SCREEN NEGATIVE.
[2023-05-28] MEDS ORDERED: Potassium Bicarbonate/Citrate 20 MEQ Effervescent TAB PO SCH (10:45)
[2023-05-28] MEDS ORDERED: TESSALON P100 MG/CAP PO (10:45)
[2023-05-28] MEDS ORDERED: INSLANT SQ (10:47)
[2023-05-28] MEDS ORDERED: AMOXICILLIN 50500 MG PO (10:47)
[2023-05-28] MEDS ORDERED: NOVOLOG 100U100 U/M1 SQ (10:48)
--- NOTE | 2023-05-28 11:46 | NUR ---
PATIENT WAS ASSISTED BY THIS RN TO WALK UP AND DOWN THE HALLWAY -TO ROOM 312 FROM ROOM 352 AND BACK. PJ DIDNOT REQUIRE AN AD, PATIENT DENIED ANY DIIZZINESS DURING AMBULATION. NANCYNET NOW SITTING UP IN BED, AWAKE AND ALERT, CALLL LIGHT WITHIN REACH.
[2023-05-28 12:17] VITALS: BP 159/86; PULSE 108; TEMP 98.6
--- NOTE | 2023-05-28 13:15 | NUR ---
JOSE ANTONIO GIVEN DISCHARGE INSTRUCTIONS AND EDUCATION. IV REMOVED. PATIENT TAKEN VIA WHEELCHAIR TO ER VIA WHEELCHAIR WHERE SHE LEFT IN STABLE CONDITOIN WITH HER .
== END 2023-05-28 13:15 | disposition home or self-care (01) | DRG 638 ==
LOC: COL.ER 11:35 → ICU 12:57 → MEDICAL 12:57
PROVIDERS: Internal Medicine; Nurse Practitioner; ADMIT Internal Medicine
DX: E11.10 Type 2 diabetes mellitus with ketoacidosis without coma (principal); N17.9 Acute kidney failure, unspecified; R65.10 Systemic inflammatory response syndrome (SIRS) of non-infectious origin without acute organ dysfunction; M54.50 Low back pain, unspecified; D64.9 Anemia, unspecified; Z20.822 Contact with and (suspected) exposure to COVID-19; J02.0 Streptococcal pharyngitis; Z88.2 Allergy status to sulfonamides; Z87.01 Personal history of pneumonia (recurrent); Z79.4 Long term (current) use of insulin; Z79.899 Other long term (current) drug therapy; Z91.040 Latex allergy status; Z23 Encounter for immunization
CPT/HCPCS: J0696; J1644; J1815; J3475; J7030; J7120

== ENCOUNTER 2023-06-13 18:22 | Inpatient (IN) | payer OTHER ==
[~2023-06-13] VITALS: Ht 170.2 cm; Wt 60.4 kg
[~2023-06-13 18:22] MED LIST changes: +AMOXICILLIN 50500 MG PO; +INSLANT SQ; +TESSALON P100 MG/CAP PO
[2023-06-13] MEDS ORDERED: NS 1,000 ML IV ONE (19:00)
[2023-06-13 20:00] LABS: BASO % 0.4 % (0.0-2.0); EOS # 0.2 K/mm3 (0.0-0.7); GRAN # 6.2 K/mm3 (1.4-6.5); GRAN % 72.4 % (42.2-75.2); LYMPH # 1.5 K/mm3 (1.2-3.4); LYMPH % 17.4 % (20.0-51.0); MEAN CELL VOLUME 78 fl (80.0-100.0); MEAN CORPUSCULAR HGB CONC 32 g/dl (33.0-37.0); MEAN PLATELET VOLUME 9.9 fl (7.4-10.4); MONO # 0.6 K/mm3 (0.1-0.6); MONO % 7.4 % (1.7-9.3); PLATELET COUNT 374 K/mm3 (130-400); RED BLOOD COUNT 3.78 M/mm3 (4.10-5.30); REDCELL DISTRIBUTION WIDTH-CV 14.3 % (11.5-14.5)
[2023-06-13 20:11] LABS: HEMATOCRIT 29.6 % (37.0-47.0); HEMOGLOBIN 9.6 g/dl (12.5-16.0); MEAN CORPUSCULAR HEMOGLOBIN 25 pg (27-31)
[2023-06-13 20:16] LABS: ALBUMIN 2.7 g/dL (3.5-5.0); ALKALINE PHOSPHATASE 134 U/L (40-150); ANION GAP 13 mmol/L (7-16); AST,SGOT 9 U/L (5-34); BLOOD UREA NITROGEN 11 mg/dL (10-20); CALCIUM 9.6 mg/dL (8.4-10.2); CHLORIDE 95 mEq/L (98-107); CREATININE, serum 0.88 mg/dL (0.57-1.11); POTASSIUM 4.2 mEq/L (3.5-4.5); SODIUM 134 mEq/L (136-145); TOTAL PROTEIN 8.2 g/dl (6.2-8.1)
[2023-06-13 20:19] LABS: ALANINE AMINOTRANSFERASE < 6 U/L (0-55); GLUCOSE 454 mg/dL (70-99)
[2023-06-13 20:21] LABS: ACETONE,SERUM SMALL
[2023-06-13 20:28] LABS: TROPONIN-I < 0.010 ng/mL (0.00-0.033)
[2023-06-13 20:29] LABS: BILIRUBIN,TOTAL 0.2 mg/dL (0.2-1.2)
[2023-06-13 21:22] LABS: COLLECTION METHOD CLEAN CATCH
[2023-06-13 21:29] LABS: URINE APPEARANCE CLEAR (CLEAR/HAZY); URINE BLOOD NEGATIVE (NEGATIVE); URINE COLOR YELLOW (YELLOW); URINE GLUCOSE 3+ (NEGATIVE); URINE KETONE 1+ (NEGATIVE); URINE NITRATE NEGATIVE (NEGATIVE); URINE PROTEIN(semi-quant) NEGATIVE (NEGATIVE); URINE UROBILINOGEN 0.2 E.U/dL (0.2-1.0)
[2023-06-13] MEDS ORDERED: Vancomycin 1.5 GM,Special Dose/Pharmacy Prepared 1.5 GM in NS 250 ML IV SCH (21:30)
[2023-06-13] MEDS ORDERED: metroNIDAZOLE 100 ML IV ONE (21:30)
[2023-06-13] MEDS ORDERED: Cefepime 1 G in Water For Injection,Sterile 10 ML IV ONE (21:30)
[2023-06-13] MEDS ORDERED: metroNIDAZOLE 100 ML IV SCH (21:30)
[2023-06-13] MEDS ORDERED: Cefepime 1 G in Water For Injection,Sterile 10 ML IV SCH (21:30)
[2023-06-13] MEDS ORDERED: Insulin Regular Human (NovoLIN R/HumuLIN R) IV ONE (21:45)
[2023-06-13] MEDS ORDERED: Vancomycin 1.25 GM,Special Dose/Pharmacy Prepared 1.25 GM in NS 250 ML IV ONE (22:00)
[2023-06-13] MEDS ORDERED: LANTUS100 U/ML SQ (22:08)
[2023-06-13] MEDS ORDERED: NATURAL POTASS595 MG PO (22:08)
[2023-06-13] MEDS ORDERED: B-121000 MCG PO (22:08)
[2023-06-13] MEDS ORDERED: VITAMINC1000TA PO (22:09)
[2023-06-13] MEDS ORDERED: MULTIPLE VITAMI1 CAP PO (22:09)
[2023-06-13] MEDS ORDERED: CALCIUM 600MG+D1 TAB PO (22:09)
[2023-06-13] MEDS ORDERED: NS 1,000 ML IV SCH (22:30)
[2023-06-13 22:51] VITALS: BP 150/91; PULSE 109; TEMP 98.1
[2023-06-13] MEDS ORDERED: Dextrose 50% Water 25 GM/50 ML SYRINGE IV PRN (23:15)
[2023-06-13] MEDS ORDERED: Glucagon 1 MG VIAL IM PRN (23:15)
[2023-06-13] MEDS ORDERED: Dextrose (Glucose) 15 GM (4 x 3.75 GM) Chewable TABLET PACK PO PRN (23:15)
[2023-06-14] VITALS (12 sets, daily range): BP systolic 121–150; BP diastolic 72–82; PULSE 90–103; TEMP 98–99.7
--- NOTE | 2023-06-14 00:30 | NUR ---
patient arrived from ED around 2244, alert and oriented x4. denies chest pain and reports slight shortness of breath with exertion, sore throat from previous strep throat, dry cough noted. IV in RH is patent, site is clean dry and intact with NS running at 125 ml/hr. left bottom of foot with scabbed ulcer and deflated blister, redness surrounding blisters, outlined by marker, open to air, no additional skin abnormalities noted. pt has no further needs, questions or concerns at this time. fall precautions in place, call light within reach. will continue to monitor.
--- NOTE | 2023-06-14 00:42 | NUR ---
Vancomycin Initial Dosing Pharmacy Note Ordering provider: Ebenezer Vergara D., MD Indication/duration: DM foot ulcers x 7 days Relevant comorbidities: DM LABS: WBC = 8.6, SCr = 0.88 Recommendation: Will draw troughs and follow levels. Loading dose: 1.25 grams Maintenance dose: 750 mg every 12 hours Trough goal: 10-15 ug/mL
[2023-06-14] MEDS ORDERED: Acetaminophen 325 MG TAB PO PRN (04:30)
[2023-06-14] MEDS ORDERED: HYDROmorphone 0.5 MG/0.5 ML SYRINGE IV PRN (04:30)
[2023-06-14] MEDS ORDERED: Tetanus,Diphther Toxoid Adult 0.5 ML SYRINGE IM ONE (04:30)
[2023-06-14] MEDS ORDERED: Benzonatate 100 MG CAP PO SCH (06:00)
[2023-06-14] MEDS ORDERED: Insulin Glargine-ygfn (Lantus) SQ SCH (08:00)
[2023-06-14] MEDS ORDERED: Multivitamin TAB PO SCH (09:00)
[2023-06-14] MEDS ORDERED: Ascorbic Acid 500 MG TAB PO SCH (09:00)
[2023-06-14] MEDS ORDERED: Calcium Carb/Vit D3 500 mg-200 Units TAB PO SCH (09:00)
[2023-06-14] MEDS ORDERED: Ferrous Sulfate 325 MG TAB PO SCH (09:00)
[2023-06-14] MEDS ORDERED: Cyanocobalamin (Vit B-12) 1,000 MCG TAB PO SCH (09:00)
--- NOTE | 2023-06-14 09:45 | NUR ---
Patient is resting in bed, alert and oriented x 4, tachycardic. Denies any pain at this time, fluids stopped per orders. Assessment completed, assisted to restroom. No further needs at this time. Call light within reach.
--- NOTE | 2023-06-14 10:50 | NUR ---
D: Initial visit: Traveling Plant Operator stopped by room on rounds. A: Pt was resting and content. Pt asked for prayer, instrument technician prayed with pt. Pt appreciated the visit. P: Traveling Plant Operator informed pt that if she needed anything else from the instrument technician area to let her nurse know. Traveling Plant Operator will follow up as needed.
[2023-06-14] MEDS ORDERED: Insulin Lispro (HumaLOG) SQ SCH ×2 (12:00)
--- NOTE | 2023-06-14 13:30 | NUR ---
Marketing Agent met with patient to discuss discharge planning. Patient advised she was recently hospitalized here for DKA and the flu. Patient stated she is back now because she has a wound on her foot. Patient lives in [place] with her , Abdi (ph#[phone]) and six of their children. Patient does not have primary care established. SW spoke with patient about the [facility] as they take her insurance. Patient is familiar with them as her children go there for dental care. SW encouraged patient to contact them as she will need to fill out new patient paperwork and get scheduled. Patient is diabetic and uses [facility] for her insulin. Patient stated Hospitalist sent over a prescription from her last stay. Patient reported she has a glucometer, but has trouble using it. Patient reported she is independent with ADLS and plans to return home at time of discharge. Patient is not sure if she has a DPOA-HC but stated it would be her . Patient inquired about applying for disability and Medicaid so SW consulted Financial Counseling. Reyna Financial Counselor advised patient does not qualify for disability and is over the income limit for Medicaid. Reyna completed an FAA with patient, but is waiting on patient to provide supporting documentation. Discharge Plan: Home, needs primary care established
--- NOTE | 2023-06-14 18:15 | NUR ---
Patient resting in bed, talking by phone, ate all her dinner. Getting antibiotics per orders. Denies any pain at this time. Report will be given to night RN.
[2023-06-14] MEDS ORDERED: Menthol Cough/Sore Throat LOZENGE MM PRN (23:45)
[2023-06-15] VITALS (11 sets, daily range): BP systolic 108–149; BP diastolic 71–87; PULSE 89–108; TEMP 98–98.5
--- NOTE | 2023-06-15 08:30 | NUR ---
PT LAYING IN BED UPON ENTERING. ASSESSMENT DONE, MEDS GIVEN PER ORDER. PT DENIES PAIN AND A NON PRODUCTIVE COUGH NOTED, PRN HALLS GIVEN. INT TO RIGHT HAND PATENT. PT DENIES NEEDS AT THIS TIME. BED IN LOWEST POSITION, CALL LIGHT IN REACH, BED ALARM ON
--- NOTE | 2023-06-15 11:28 | NUR ---
Initial visit; Patient thanked Stave Log Cut Off Saw Operator for looking in on her and spoke about her Diabetes and her foot wound. She said she has been diabetic for 30 years and it has been a parada. Viraj was receptive to prayer for healing and thanked Stave Log Cut Off Saw Operator, who wished her God's healing.
[2023-06-15] MEDS ORDERED: Albuterol/Ipratropium 3 MG-0.5 MG/3 ML Neb Soln IH PRN (12:00)
[2023-06-15] MEDS ORDERED: Albuterol/Ipratropium 3 MG-0.5 MG/3 ML Neb Soln IH SCH (13:00)
--- NOTE | 2023-06-15 15:56 | NUR ---
PT REFUSED TX
--- NOTE | 2023-06-15 17:00 | NUR ---
ANTIBIOTIC HUNG PER ORDER. PT STILL HAVING NON PRODUCTIVE COUGH AND DENIES NEEDS AT THIS TIME. BED IN LOWEST POSITION, CALL LIGHT IN REACH, BED ALAR, ON
[2023-06-16] VITALS (11 sets, daily range): BP systolic 106–135; BP diastolic 73–85; PULSE 100–107; TEMP 98.2–98.7
--- NOTE | 2023-06-16 07:10 | NUR ---
PATINET AWAKE AND ALERT, SITTING UP IN BED. PATIENTS FALL PRECAUTIONS IN PLACE. BED ALARM TURNED ON, CALL LIGHT WITHIN REACH. PATINET DENIES ANY NEEDS OR COMPLAINTS AT THIS TIME.
[2023-06-16] MEDS ORDERED: Insulin Glargine-ygfn (Lantus) SQ SCH (08:00)
[2023-06-16] MEDS ORDERED: Insulin Lispro (HumaLOG) SQ SCH (12:00)
--- NOTE | 2023-06-16 13:00 | NUR ---
PATIENT RESTING IN BED. PATIENT DENIES ANY NEEDS OR COMPLAINTS AT THIS TIME, FALL PRECAUTIONS IN PLACE, CALL LIGHT WITHIN REACH.
--- NOTE | 2023-06-16 18:50 | NUR ---
BEDSIDE REPORT GIVEN. PATIENT DENIES ANY NEEDS OR COMPLAINTS AT THIS TIME. PATIENT AWAKE AND ALERT, SITTING UP IN BED, FALL PRECAUTOINS IN PLACE, BED ALARM ON, CALL LIGHT WITHIN REACH.
[2023-06-17] VITALS (7 sets, daily range): BP systolic 128–142; BP diastolic 72–81; PULSE 81–106; TEMP 97.5–98.7
--- NOTE | 2023-06-17 03:52 | NUR ---
Vancomycin Follow-up Pharmacy Note Current regimen: 750 mg q12h Vancomycin trough: 8.32 Adjustments: Increase to 1 g q12h
[2023-06-17 06:27] LABS: BASO % 0.3 % (0.0-2.0); EOS # 0.3 K/mm3 (0.0-0.7); EOS % 5.1 % (0.0-4.0); GRAN # 3.3 K/mm3 (1.4-6.5); GRAN % 55.9 % (42.2-75.2); LYMPH # 1.8 K/mm3 (1.2-3.4); LYMPH % 30.6 % (20.0-51.0); MEAN CELL VOLUME 82 fl (80.0-100.0); MEAN CORPUSCULAR HGB CONC 30 g/dl (33.0-37.0); MEAN PLATELET VOLUME 9.9 fl (7.4-10.4); MONO # 0.5 K/mm3 (0.1-0.6); MONO % 7.6 % (1.7-9.3); PLATELET COUNT 387 K/mm3 (130-400); RED BLOOD COUNT 3.36 M/mm3 (4.10-5.30)
[2023-06-17 06:33] LABS: HEMATOCRIT 27.6 % (37.0-47.0); HEMOGLOBIN 8.4 g/dl (12.5-16.0); MEAN CORPUSCULAR HEMOGLOBIN 25 pg (27-31)
[2023-06-17 06:47] LABS: C-REACTIVE PROTEIN 0.75 mg/dL (0.00-0.50); CALCIUM 8.6 mg/dL (8.4-10.2); CREATININE, serum 0.73 mg/dL (0.57-1.11); MAGNESIUM 1.6 mg/dL (1.6-2.6); POTASSIUM 3.6 mEq/L (3.5-4.5)
--- NOTE | 2023-06-17 08:20 | NUR ---
PT LAYING IN BED UPON ENTERING. ASSESSMENT DONE, MEDS GIVEN PER ORDER. WOUND CARE AT BEDSIDE. PT DENIES PAIN AT THIS TIME. INT TO RIGHT HAND PATENT. HEALING BLISTER TO LEFT LATERAL FOOT. PT DENIES NEEDS. BED IN LOWEST POSITION, CALL LIGHT IN REACH, BED ALARM ON
[2023-06-17] MEDS ORDERED: LANTUS100 U/ML SQ (08:56)
[2023-06-17] MEDS ORDERED: DOXYCYCLINE 10100 MG PO (08:56)
[2023-06-17] MEDS ORDERED: Magnesium Sulfate 2 GM/50 ML IV SOLN IV ONE (09:00)
--- NOTE | 2023-06-17 09:53 | NUR ---
Follow-up visit; Patient states she is being discharged home with antibiotics and hopes to heal soon. Public Events Facilities Rental Manager wished patient well with God's blessings.
[2023-06-17] MEDS ORDERED: Doxycycline Monohydrate 100 MG CAP PO ONE (10:00)
--- NOTE | 2023-06-17 10:30 | NUR ---
lay out worker was informed by oRsy Avalos that pt is requesting to speak with financial advisors. SW spoke with advisor, Reyna and informed her pt needs to speak with her and is discharging in a few hours.
--- NOTE | 2023-06-17 10:53 | NUR ---
Leather Roller met with patient to discuss discharge planning. BAYRON discussed the importance of following up with [facility] to get established with them. Patient verbalized understanding and stated she would follow up with them. Sabina, Imaging Analyst contacted [facility] who stated they will email patient new patient paperwork. Discharge Plan; Home
--- NOTE | 2023-06-17 12:38 | NUR ---
IV REMOVED AND PT DRESSED IN PERSONAL CLOTHES. ORTHO SHOE PLACED ON LEFT FOOT. PT GIVEN DISCHARGE INSTRUCTIONS AND VERBALIZED UNDERSTANDING. PT DENIES NEEDS AND WAITING ON RIDE, THIS NURSE TOLD PT TO USE CALL LIGHT WHEN READY
--- NOTE | 2023-06-17 12:44 | NUR ---
PT PREPARING TO LEAVEV FLOOR WHEN WOUND CARE FIELD APPLICATION ENGINEER PLACED ORDERS FOR DRESSING CHANGE. THIS NURSE CALLED IN AN ATTEMPT TO VERIFY WITH NO ANSWER
--- NOTE | 2023-06-17 12:49 | NUR ---
PT ESCORTED TO PERSONAL VEHICLE VIA WHEELCHAIR BY ARDEN UNDERWOOD
== END 2023-06-17 12:49 | disposition home or self-care (01) | DRG 637 ==
LOC: COL.ER 18:22 → MEDICAL 21:49
PROVIDERS: Emergency Medicine; Internal Medicine; Nurse Practitioner; ADMIT Internal Medicine
DX: E11.621 Type 2 diabetes mellitus with foot ulcer (principal); J18.9 Pneumonia, unspecified organism; L03.116 Cellulitis of left lower limb; E11.628 Type 2 diabetes mellitus with other skin complications; Z20.822 Contact with and (suspected) exposure to COVID-19; L97.529 Non-pressure chronic ulcer of other part of left foot with unspecified severity; I10 Essential (primary) hypertension; B95.0 Streptococcus, group A, as the cause of diseases classified elsewhere; E11.40 Type 2 diabetes mellitus with diabetic neuropathy, unspecified; D64.9 Anemia, unspecified; Z88.0 Allergy status to penicillin; Z88.2 Allergy status to sulfonamides; Z91.040 Latex allergy status; Z79.899 Other long term (current) drug therapy; Z79.4 Long term (current) use of insulin
CPT/HCPCS: J0692; J1650; J1815; J1836; J3370; J3475; J7030; J7050

== ENCOUNTER 2023-07-29 01:33 | Inpatient (IN) | payer OTHER ==
[~2023-07-29] VITALS: Ht 162.6 cm; Wt 58.3 kg
[~2023-07-29 01:33] MED LIST changes: +B-121000 MCG PO; +CALCIUM 600MG+D1 TAB PO; +LANTUS100 U/ML SQ; +MULTIPLE VITAMI1 CAP PO; +NATURAL POTASS595 MG PO; +VITAMINC1000TA PO
[2023-07-30] VITALS (8 sets, daily range): BP systolic 135–150; BP diastolic 69–92; PULSE 91–103; TEMP 98.5–99.4
--- NOTE | 2023-07-30 03:00 | NUR ---
An Electronic Health Record (EHR) downtime even occurred during this patient's care. For legal medical record information generated during the downtime period, please reference the patient's legal medical record. Paper or scanned documentation has been incorporated into the legal medical record which is maintained in accordance with Health Information Management (HIM) and record retention policies.
[2023-07-30] MEDS ORDERED: Ondansetron 4 MG/2 ML VIAL IV PRN (04:30)
[2023-07-30] MEDS ORDERED: Acetaminophen 325 MG TAB PO PRN (04:30)
[2023-07-30] MEDS ORDERED: traMADol 50 MG TAB PO PRN (04:30)
[2023-07-30] MEDS ORDERED: Polyethylene Glycol 3350 17 GM PDS PO PRN (04:30)
[2023-07-30] MEDS ORDERED: Docusate Sodium 100 MG CAP PO PRN (04:30)
[2023-07-30] MEDS ORDERED: Glucagon 1 MG VIAL IM PRN (06:30)
[2023-07-30] MEDS ORDERED: Benzonatate 100 MG CAP PO PRN (06:30)
[2023-07-30] MEDS ORDERED: Dextrose (Glucose) 15 GM (4 x 3.75 GM) Chewable TABLET PACK PO PRN (06:30)
[2023-07-30] MEDS ORDERED: Dextrose 50% Water 25 GM/50 ML SYRINGE IV PRN (06:30)
[2023-07-30] MEDS ORDERED: Albuterol/Ipratropium 3 MG-0.5 MG/3 ML Neb Soln IH SCH (08:00)
[2023-07-30] MEDS ORDERED: Heparin Sodium 5000 UNITS/ML SUBCUTANEOUSLY Q8HR SQ SCH (08:00)
[2023-07-30] MEDS ORDERED: Insulin Lispro (HumaLOG) SQ SCH (08:00)
--- NOTE | 2023-07-30 08:17 | NUR ---
patient alert and oriented x4. patient denied pain at this time. reports dry cough no sputum observed. patient on room air. blood sugar elevated this morning. patient has a left foot wound, dressing clean and dry. patient bed alarm on. call light within reach. bed at lowest position.
--- NOTE | 2023-07-30 08:43 | NUR ---
On 07/29/23, social media specialist met with patient to assess for discharge planning. Patient is independent in her room and states that she lives with her spouse (Abdi #[phone]), and 11 of her family and extended family members. Patient states she does not have income and has been denied disability previously. Patient verbalized understanding that she needs to reapply. Patient states that she currently has a [facility] policy, however the hospital and provider are out of network. Worker collaborated with hospital Financial counsleing to meet with patient and screen/apply for medicaid. Patient states her new primary care provider is Kostas Salazar with [facility] and that she has not seen him yet. Patient states she receives wound care once monthly from [facility]. Patient states she does not have advance directives and plan to return home upon discharge. Discharge plan: Home with spouse and numerous family members.
[2023-07-30] MEDS ORDERED: Pantoprazole 40 MG in NS 10 ML IV SCH (09:00)
[2023-07-30] MEDS ORDERED: LEVOFLOXACIN 500 MG/100 ML IV SCH (09:00)
[2023-07-30] MEDS ORDERED: Insulin Glargine-ygfn (Lantus) SQ SCH (09:00)
--- NOTE | 2023-07-30 15:55 | NUR ---
trailhead maintenance worker was notified patient wanted to meet with social media specialist. BAYRON met with patient whom expressed she was wanting information on resources in the community for food porter and clothing supplies. Patient also expressed that she has 11 people living in her home. She stated that 2 of the children and a mother recently moved into the home after leaving [facility] where a CPS report was made for drug concerns. Patient stated the mother was supposed to be going to a methadone clinic but she has not been able to do so. BAYRON provided [facility] Resource Guide, [employer]. Due to concerns of possible drug usage in the home, BAYRON made a CPS report. Intake ID [id number]. Discharge plan: Home
[2023-07-30] MEDS ORDERED: MAGNESIUM200 MG PO (16:06)
[2023-07-31 00:48] VITALS: BP_SYST 147
--- NOTE | 2023-07-31 01:56 | NUR ---
Patient lying in bed, alert and oriented x4. denies chest pain and shortness of breath. 1951- pt notified RN of allergy to Heparin and refusal of additional blood thinners, VEE Varma notified, orders changed per VEE Varma. IV in RAC is patent, site CDI. dressing to left foot noted for nickel sized heel wound, CDI. insulin given per orders. pt has no further needs, questions or concerns at this time. fall precautions in place, call light within reach. will continue to monitor.
[2023-07-31 03:20] VITALS: BP 150/84; PULSE 95; TEMP 98.5
[2023-07-31 04:45] VITALS: BP_SYST 150
[2023-07-31 07:16] VITALS: BP 130/68; PULSE 89; TEMP 98.6
[2023-07-31] MEDS ORDERED: LANTUS100 U/ML SQ (08:28)
[2023-07-31 08:30] VITALS: BP_SYST 130
[2023-07-31] MEDS ORDERED: INSULIN HUMA100 U/ML SQ (08:30)
[2023-07-31] MEDS ORDERED: PRINIVIL5 MG PO (08:30)
[2023-07-31] MEDS ORDERED: Lisinopril 10 MG TAB PO SCH (09:00)
--- NOTE | 2023-07-31 09:20 | NUR ---
PATIENT ALERT AND ORIENTED X4. PATIENT DENIES PAIN AT THIS TIME. ROOM AIR, DRESSING C/D/I. PATIENT RESTING IN BED. SHIFT ASSESSMENT COMPLETED. CALL LIGHT WITHIN REACH. BED AT LOWEST POSITION. BED ALARM ON.
--- NOTE | 2023-07-31 11:20 | NUR ---
PATIENT DISCHARGE INSTRUCTION GIVEN. PATIENT DENIED ANY QUESTIONS OR CONCERNS. PATIENT WOUND DRESSING CHANGE WAS PROVIDED BY WOUND CARE THIS MORNING. IV REMOVED. PATIENT INSTRUCTED TO CALL WHEN RIDE IS HERE TO BE ESCORTED OUT OF HOSPITAL BY PCT.
== END 2023-07-31 12:35 | disposition home or self-care (01) | DRG 638 ==
LOC: COL.ER 01:33 → ICU 04:00 → MEDICAL 04:00
PROVIDERS: ADMIT Hospitalist
DX: E11.10 Type 2 diabetes mellitus with ketoacidosis without coma (principal); J98.11 Atelectasis; N17.9 Acute kidney failure, unspecified; E11.621 Type 2 diabetes mellitus with foot ulcer; L97.529 Non-pressure chronic ulcer of other part of left foot with unspecified severity; E87.6 Hypokalemia; E83.42 Hypomagnesemia; R03.0 Elevated blood-pressure reading, without diagnosis of hypertension
CPT/HCPCS: C9113; J1815; J1956

== ENCOUNTER 2023-08-12 20:01 | Inpatient (IN) | payer OTHER ==
[~2023-08-12] VITALS: Ht 170.2 cm; Wt 59.9 kg
[~2023-08-12 20:01] MED LIST changes: +INSULIN HUMA100 U/ML SQ; +MAGNESIUM200 MG PO; +PRINIVIL5 MG PO
[2023-08-12] MEDS ORDERED: NS 1,000 ML IV ONE ×2 (21:15→22:00)
[2023-08-12 21:27] LABS: BASO # 0.1 K/mm3 (0.0-0.2); BASO % 0.4 % (0.0-2.0); EOS # 0.2 K/mm3 (0.0-0.7); EOS % 1.5 % (0.0-4.0); GRAN # 9.4 K/mm3 (1.4-6.5); GRAN % 76.3 % (42.2-75.2); LYMPH % 15.8 % (20.0-51.0); MEAN CELL VOLUME 82 fl (80.0-100.0); MEAN CORPUSCULAR HGB CONC 29 g/dl (33.0-37.0); MEAN PLATELET VOLUME 10.7 fl (7.4-10.4); MONO # 0.7 K/mm3 (0.1-0.6); MONO % 5.6 % (1.7-9.3); PLATELET COUNT 326 K/mm3 (130-400); RED BLOOD COUNT 3.92 M/mm3 (4.10-5.30); REDCELL DISTRIBUTION WIDTH-CV 17.2 % (11.5-14.5)
[2023-08-12 21:30] LABS: HEMATOCRIT 32.3 % (37.0-47.0); HEMOGLOBIN 9.4 g/dl (12.5-16.0); MEAN CORPUSCULAR HEMOGLOBIN 24 pg (27-31)
[2023-08-12 21:40] LABS: ALANINE AMINOTRANSFERASE 8 U/L (0-55); ALBUMIN 2.8 g/dL (3.5-5.0); ALKALINE PHOSPHATASE 143 U/L (40-150); ANION GAP 18 mmol/L (7-16); AST,SGOT 8 U/L (5-34); BILIRUBIN,TOTAL 0.2 mg/dL (0.2-1.2); BLOOD UREA NITROGEN 15 mg/dL (10-20); C-REACTIVE PROTEIN 10.51 mg/dL (0.00-0.50); CHLORIDE 94 mEq/L (98-107); CREATININE, serum 1.07 mg/dL (0.57-1.11); POTASSIUM 4.3 mEq/L (3.5-4.5); SODIUM 135 mEq/L (136-145); TOTAL PROTEIN 8.2 g/dl (6.2-8.1)
[2023-08-12 21:44] LABS: ACETONE,SERUM MODERATE; GLUCOSE 551 mg/dL (70-99)
[2023-08-12 21:49] LABS: TROPONIN-I < 0.010 ng/mL (0.00-0.033)
[2023-08-12] MEDS ORDERED: Insulin Regular Human (NovoLIN R/HumuLIN R) SQ ONE (22:00)
[2023-08-12] MEDS ORDERED: NS 50 ML IV SCH (23:48)
[2023-08-12] MEDS ORDERED: Iohexol 300 - 100 ML VIAL IV ONE (23:48)
[2023-08-13] VITALS (8 sets, daily range): BP systolic 111–149; BP diastolic 69–84; PULSE 90–107; TEMP 98.5–98.9
[2023-08-13] MEDS ORDERED: cefTRIAXone 1 G in Water For Injection,Sterile 10 ML IV ONE (01:30)
[2023-08-13] MEDS ORDERED: LR 1,000 ML IV SCH (02:30)
[2023-08-13] MEDS ORDERED: Docusate Sodium 100 MG CAP PO PRN (02:30)
[2023-08-13] MEDS ORDERED: Ondansetron 4 MG/2 ML VIAL IV PRN (02:30)
[2023-08-13] MEDS ORDERED: Acetaminophen 325 MG TAB PO PRN (02:30)
[2023-08-13] MEDS ORDERED: Polyethylene Glycol 3350 17 GM PDS PO PRN (02:30)
--- NOTE | 2023-08-13 03:20 | NUR ---
ARDEN Monge from ED called to give report. Primary nurse taking patient is currently transferring a patient to ICU. Informed will have Primary nurse call report when back from ICU. Verbalizes understanding.
--- NOTE | 2023-08-13 04:00 | NUR ---
PT ARRIVED TO ROOM 332 FROM ED VIA W/C & AMBULATED TO BED WITH SBA. HERE FOR SOA & PNEUMONIA. A&O X4. VSS ON 2L/NC. BLOOD SUGAR ON ARRIVAL WAS 123. PT DENIES N/V. STATES SHE HAS A HEADACHE, GAVE PRN TYLENOL PER APR. LR @ 75MLS INFUSING TO LEFT HAND. DM FOOT ULCER ON THE BOTTOM OF LEFT FOOT, WOUND CARE DRSG IN PLACE CDI. PT REPORTS SHE HAS BEEN SEEING WOUND CARE BUT THEY RECENTLY TOLD HER SHE WAS CLEARED. RESP PANEL SENT TO LAB. PT ORIENTED TO ROOM & IS DENYING FURTHER NEEDS. CALL LIGHT IN REACH
[2023-08-13] MEDS ORDERED: Formoterol Neb Soln 20 MCG/2 ML UD IH SCH (07:00)
--- NOTE | 2023-08-13 07:20 | NUR ---
PATIENT ASLEEP, RESTING IN BED. PATIENT AROUSES EASILY TO NAME. CALLL LIGHT WITHIN REACH, O2 AT 2LNC. PATIENT CALL LIGHT WITHIN REACH.
[2023-08-13] MEDS ORDERED: Magnesium Oxide 400 MG TAB PO SCH (08:00)
[2023-08-13] MEDS ORDERED: Insulin Lispro (HumaLOG) SQ SCH (08:00)
[2023-08-13] MEDS ORDERED: predniSONE 10 MG TAB PO SCH (08:00)
[2023-08-13] MEDS ORDERED: Albuterol/Ipratropium 3 MG-0.5 MG/3 ML Neb Soln IH SCH (08:00)
[2023-08-13] MEDS ORDERED: Insulin Glargine-ygfn (Lantus) SQ SCH (08:00)
[2023-08-13] MEDS ORDERED: Lisinopril 5 MG TAB PO SCH (09:00)
[2023-08-13] MEDS ORDERED: Doxycycline Monohydrate 100 MG CAP PO SCH (09:00)
--- NOTE | 2023-08-13 10:20 | NUR ---
PATIENT TAKEN BY PT, WITH O2, GAIT BELT AND AID WALKING BEHIND HER WITH WHEELCHAIR TO WALK TO HER NEW ROOM IN 305. PATIENT MADE IT WITHOUT NEEDING ANY ASSIST. PATIENTS BELONGINGS IN ROOM. REPORT GIVEN TO Cornel HER.
--- NOTE | 2023-08-13 10:31 | NUR ---
PT AMBULTATED TO ROOM FROM SURGICAL WITH PHYSICAL THERAPY, BELONGINGS AT BEDSIDE. PT ON 2L NASAL CANNULA. INT TO LEFT HAND PATENT. COUGH NOTED, PRODUCTIVE PER PT. LEFT PLANTAR FOOT WOUND NOTED, SKIN SCABBING OVER. SMALL AMOUNT OF YELLOW DRAINAGE NOTED TO DRESSING, GAUZE AND KERLIX. PT DENIES PAIN OR NEEDS AT THIS TIME. BED IN LOWEST POSITION, CALL LIGHT IN REACH, BED ALARM ON.
[2023-08-13] MEDS ORDERED: K-DUR 10 MEQ T10 MEQ PO (10:51)
[2023-08-13] MEDS ORDERED: Azithromycin 250 MG TAB PO SCH (12:00)
--- NOTE | 2023-08-13 12:04 | NUR ---
PT REPORTS LEFT EYE BLURRINESS AND PAIN, DR ROLAND NOTIFIED AND NO NEW ORDERS AT THIS TIME. PT ALSO COMPLAINING OF HEADACHE AND GIVEN PRN TYLENOL. PT DENIES NEEDS. BED IN LOWEST POSITION, CALL LIGHT IN REACH, BED ALARM ON
[2023-08-13 12:10] LABS: COLLECTION METHOD CLEAN CATCH
[2023-08-13 12:26] LABS: PH 5.5 (5.0-8.5); URINE APPEARANCE CLEAR (CLEAR/HAZY); URINE BLOOD NEGATIVE (NEGATIVE); URINE COLOR YELLOW (YELLOW); URINE GLUCOSE 3+ (NEGATIVE); URINE KETONE 2+ (NEGATIVE); URINE NITRATE NEGATIVE (NEGATIVE); URINE PROTEIN(semi-quant) 1+ (NEGATIVE); URINE UROBILINOGEN 0.2 E.U/dL (0.2-1.0)
--- NOTE | 2023-08-13 16:20 | NUR ---
Decorating Kiln Operator and student, Margaret met with patient to discuss discharge planning. Patient lives [place] with her , Abdi (ph#[phone]) and six of their ten children: Darryl (23), Amanda (20), [place] (18), Jessica (21), Christopher (16), and Jose Miguel (13). Patient stated her two grandchildren, Jenaro (6) and Claire (7) are also staying with her. Their mom is going back to [place] but leaving the kids. Patient sees Dr. Salazar for primary care and gets her medications from [facility]. Sometimes finances delays her in getting her medications, but she always picks them up as quick as she can. Patient has [place] through the [facility]. Patient uses a cane as needed and normally does not wear oxygen at baseline, however is currently requiring it. Patient is independent with ADLS and plans to return home. Patient does not have DPOA-HC and was not interested in creating one. Patient stated her makes all the decisions. Discharge Plan: Home
[2023-08-13] MEDS ORDERED: cefTRIAXone 1 G in Water For Injection,Sterile 10 ML IV SCH (22:00)
[2023-08-14] VITALS (11 sets, daily range): BP systolic 103–148; BP diastolic 62–83; PULSE 95–111; TEMP 98.2–98.5
--- NOTE | 2023-08-14 06:41 | NUR ---
CALL RECIEVED FROM LAB. REPEAT Hgb NEEDS TO BE DONE-ERROR IN RESULTS.
--- NOTE | 2023-08-14 07:10 | NUR ---
ASHLEE LOGAN AND ALERT, SITTING UP IN BED. PATIENT DENIES ANY NEEDS OR COMPLAITNS AT THIS TIME. CALL LIGHT WTIHIN REACH.
[2023-08-14 07:28] LABS: BASO % 0.4 % (0.0-2.0); EOS # 0.2 K/mm3 (0.0-0.7); EOS % 2.4 % (0.0-4.0); GRAN # 5.4 K/mm3 (1.4-6.5); GRAN % 67.7 % (42.2-75.2); LYMPH # 1.8 K/mm3 (1.2-3.4); LYMPH % 22.8 % (20.0-51.0); MEAN CELL VOLUME 80 fl (80.0-100.0); MEAN CORPUSCULAR HGB CONC 30 g/dl (33.0-37.0); MEAN PLATELET VOLUME 10.1 fl (7.4-10.4); MONO # 0.5 K/mm3 (0.1-0.6); MONO % 6.4 % (1.7-9.3); PLATELET COUNT 297 K/mm3 (130-400); RED BLOOD COUNT 3.36 M/mm3 (4.10-5.30); REDCELL DISTRIBUTION WIDTH-CV 17.2 % (11.5-14.5)
[2023-08-14 07:33] LABS: HEMATOCRIT 26.7 % (37.0-47.0); HEMOGLOBIN 8.1 g/dl (12.5-16.0); MEAN CORPUSCULAR HEMOGLOBIN 24 pg (27-31)
[2023-08-14 08:09] LABS: CREATININE, serum 0.74 mg/dL (0.57-1.11); POTASSIUM 3.7 mEq/L (3.5-4.5)
[2023-08-14] MEDS ORDERED: Insulin Glargine-ygfn (Lantus) SQ SCH (08:40)
[2023-08-14] MEDS ORDERED: Dextrose 50% Water 25 GM/50 ML SYRINGE IV PRN (08:45)
[2023-08-14] MEDS ORDERED: Glucagon 1 MG VIAL IM PRN (08:45)
[2023-08-14] MEDS ORDERED: Dextrose (Glucose) 15 GM (4 x 3.75 GM) Chewable TABLET PACK PO PRN (08:45)
--- NOTE | 2023-08-14 10:02 | NUR ---
Initial visit; Patient and Chain Dyer recognized eachother and visited about what brought Viraj to the hospital this time. Viraj asked Chain Dyer if she could keep her in her prayers. Chain Dyer will do so and will check on Viraj again while she is hospitalized.
[2023-08-14] MEDS ORDERED: Insulin Lispro (HumaLOG) SQ SCH (12:00)
--- NOTE | 2023-08-14 14:50 | NUR ---
PATIENT INDEPENDENT TO BATHROOM AND BACK TO BED WITH RN SUPERVISOIN. PATIENT DENIES ANY NEEDS OR COMPLAINTS AT THIS TIME, MICK LIGHT WTIHIN REACH. PATIENT STATED SHE WOULD LIKE TO NAP.
--- NOTE | 2023-08-14 20:00 | NUR ---
UPON SHIFT ASSESSMENT, PATIENT WAS AWKE IN BED AXO X4. SHE STATED SHE HAD A RECENT COUGHING FIT THAT LASTED FOR "AWHILE". LUNG SOUNDS DIMINISHED, AIRWAY PATENT AND VS ARE STABLE TO INCLUDE O2 OF 93% ON RA. CALL PLACED TO HOSPITALIST FOR TESSALON PERLS. TORB FOR TESSLON PERLS GIVEN. PATIENT DENIES PAIN OR OTHER NEEDS AT THIS TIME. BG IS 249-SCHEDULED AND SLIDING SCALE INSULIN TO BE ADMINISTERED. CALL LIGHT WITHIN REACH.
[2023-08-14] MEDS ORDERED: Benzonatate 100 MG CAP PO PRN (22:15)
[2023-08-15] VITALS (7 sets, daily range): BP systolic 105–133; BP diastolic 51–85; PULSE 95–100; TEMP 98.1
--- NOTE | 2023-08-15 | NUR ---
ROUNDED ON PATIENT. PATIENT AWAKE AND WATCHING TV, REQUESTED SNACK. SUGAR FREE JELLO GIVEN.
--- NOTE | 2023-08-15 02:00 | NUR ---
ROUNDED ON PATIENT, STILL AWAKE. ASKED PATIENT IF SHE WAS RESTLESS OR IN PAIN. PATIENT DENIED PAIN, STATED "I HADN'T BEEN SLEEPING VERY WELL." WILL PASS ON TO DAY SHIFT ORDER TO REQUEST MELATONIN PER PROTOCOL, IT IS TOO LATE NOW TO ADMINISTER SLEEP AID.
[2023-08-15 07:04] LABS: MEAN CELL VOLUME 82 fl (80.0-100.0); MEAN CORPUSCULAR HGB CONC 30 g/dl (33.0-37.0); MEAN PLATELET VOLUME 10.5 fl (7.4-10.4); PLATELET COUNT 311 K/mm3 (130-400); RED BLOOD COUNT 3.36 M/mm3 (4.10-5.30); REDCELL DISTRIBUTION WIDTH-CV 17.6 % (11.5-14.5)
--- NOTE | 2023-08-15 07:06 | NUR ---
PT REFUSING DUONEB BECAUSE OF JITTERS FOR SEVERAL HOURS AFTER TX. TOOK PERFOROMIST
[2023-08-15 07:29] LABS: CALCIUM 9.1 mg/dL (8.4-10.2); CREATININE, serum 0.73 mg/dL (0.57-1.11); POTASSIUM 3.8 mEq/L (3.5-4.5)
[2023-08-15 07:34] LABS: HEMATOCRIT 27.5 % (37.0-47.0); HEMOGLOBIN 8.2 g/dl (12.5-16.0); MEAN CORPUSCULAR HEMOGLOBIN 24 pg (27-31)
--- NOTE | 2023-08-15 07:40 | NUR ---
Bedside report received from ARDEN Jones. Pt resting in bed with no complaints. Call light within reach and fall precautions in place.
[2023-08-15] MEDS ORDERED: OMNICEF 300MG300 MG PO (08:07)
[2023-08-15] MEDS ORDERED: DOXYCYCLINE 10100 MG PO (08:07)
[2023-08-15] MEDS ORDERED: PREDNISONE10 MG PO (08:27)
--- NOTE | 2023-08-15 08:28 | NUR ---
Pt awake in bed on telephone. Shift assessment completed. Pt A&O x4. VSS. Pt denies pain\discomfort rating 0/10. INT to Lt hand patent with no swelling, redness, or drainage. Lung sounds clear to ausculatation. Lt foot wound/scab covered with gauze, CDI. Pt has no complaints at this time. Call light within reach.
[2023-08-15 09:09] LABS: BAND 2 % (0-10); EOSINOPHIL 2 % (0-4); HYPOCHROMIA 3+; LYMPHOCYTE 38 % (20.0-51.0); NEUTROPHILS 56 % (42.0-75.2)
[2023-08-15 09:10] LABS: ANISOCYTOSIS 1+; PLATELET ESTIMATE NORMAL (NORMAL)
[2023-08-15] MEDS ORDERED: TESSALON P100 MG/CAP PO (09:37)
--- NOTE | 2023-08-15 12:00 | NUR ---
Discharge instructions provided to pt and pt verbalized understanding of discharge paperwork. INT to Lt hand discontinued with tip intact, pt tolerated well with no complaints. Pt left facility with spouse and PCT Lakeisha escorted pt into spouse vechile with no complications.
== END 2023-08-15 12:00 | disposition home or self-care (01) | DRG 193 ==
LOC: COL.ER 20:01 → MEDICAL 08-13 02:48 → SURG 08-13 02:48 → MEDICAL 08-13 10:16
PROVIDERS: Nurse Practitioner; ADMIT Internal Medicine
DX: J18.9 Pneumonia, unspecified organism (principal); J96.01 Acute respiratory failure with hypoxia; Z87.891 Personal history of nicotine dependence; E11.65 Type 2 diabetes mellitus with hyperglycemia; Z79.4 Long term (current) use of insulin; I10 Essential (primary) hypertension; S81.802A Unspecified open wound, left lower leg, initial encounter
CPT/HCPCS: J0696; J1650; J1815; J7030; J7120; J7512; Q9967

== ENCOUNTER 2023-09-14 23:31 | Emergency (ER) | payer OTHER ==
[~2023-09-14] VITALS: Ht 170.2 cm; Wt 60.5 kg
[~2023-09-14 23:31] MED LIST changes: +K-DUR 10 MEQ T10 MEQ PO; +OMNICEF 300MG300 MG PO; +PREDNISONE10 MG PO
[2023-09-14 23:34] VITALS: TEMP 98.6
[2023-09-14] MEDS ORDERED: Ondansetron 4 MG/2 ML VIAL IV ONE (23:45)
[2023-09-15] MEDS ORDERED: LR 1,000 ML IV ONE ×2 (00:15→01:15)
[2023-09-15 00:20] LABS: COLLECTION METHOD CLEAN CATCH
[2023-09-15 00:24] LABS: URINE APPEARANCE CLEAR (CLEAR/HAZY); URINE BLOOD NEGATIVE (NEGATIVE); URINE COLOR YELLOW (YELLOW); URINE GLUCOSE 3+ (NEGATIVE); URINE KETONE NEGATIVE (NEGATIVE); URINE NITRATE NEGATIVE (NEGATIVE); URINE PROTEIN(semi-quant) NEGATIVE (NEGATIVE); URINE UROBILINOGEN 0.2 E.U/dL (0.2-1.0)
[2023-09-15 00:50] LABS: BASO % 0.5 % (0.0-2.0); EOS # 0.2 K/mm3 (0.0-0.7); EOS % 3.1 % (0.0-4.0); GRAN # 2.5 K/mm3 (1.4-6.5); GRAN % 44.3 % (42.2-75.2); LYMPH # 2.1 K/mm3 (1.2-3.4); LYMPH % 38.4 % (20.0-51.0); MEAN CELL VOLUME 78 fl (80.0-100.0); MEAN CORPUSCULAR HGB CONC 30 g/dl (33.0-37.0); MEAN PLATELET VOLUME 10.5 fl (7.4-10.4); MONO # 0.7 K/mm3 (0.1-0.6); MONO % 13.3 % (1.7-9.3); PLATELET COUNT 252 K/mm3 (130-400); RED BLOOD COUNT 3.84 M/mm3 (4.10-5.30); REDCELL DISTRIBUTION WIDTH-CV 17.4 % (11.5-14.5)
[2023-09-15 00:51] LABS: HEMATOCRIT 29.9 % (37.0-47.0); HEMOGLOBIN 9.1 g/dl (12.5-16.0); MEAN CORPUSCULAR HEMOGLOBIN 24 pg (27-31)
[2023-09-15 01:02] LABS: ALANINE AMINOTRANSFERASE 14 U/L (0-55); ALBUMIN 2.8 g/dL (3.5-5.0); ALKALINE PHOSPHATASE 102 U/L (40-150); ANION GAP 11 mmol/L (7-16); AST,SGOT 11 U/L (5-34); BILIRUBIN,TOTAL 0.2 mg/dL (0.2-1.2); BLOOD UREA NITROGEN 16 mg/dL (10-20); CALCIUM 8.9 mg/dL (8.4-10.2); CHLORIDE 94 mEq/L (98-107); CREATININE, serum 0.93 mg/dL (0.57-1.11); LIPASE 43 U/L (8-78); POTASSIUM 4.2 mEq/L (3.5-4.5); SODIUM 130 mEq/L (136-145); TOTAL PROTEIN 6.8 g/dl (6.2-8.1)
[2023-09-15 01:06] LABS: GLUCOSE 561 mg/dL (70-99)
[2023-09-15] MEDS ORDERED: Iohexol 300 - 100 ML VIAL IV ONE (01:25)
[2023-09-15] MEDS ORDERED: NS 50 ML IV ONE (01:26)
[2023-09-15 01:28] LABS: ACETONE,SERUM NEGATIVE
[2023-09-15] MEDS ORDERED: DOXYCYCLINE 10100 MG PO (02:39)
[2023-09-15] MEDS ORDERED: Doxycycline Monohydrate 100 MG CAP PO ONE (02:45)
[2023-09-15] MEDS ORDERED: Insulin Regular Human (NovoLIN R/HumuLIN R) SQ ONE (02:45)
[2023-09-15 03:30] VITALS: BP 171/91; PULSE 103
[2023-09-15] MEDS ORDERED: diphenhydrAMINE 50 MG/ML 1 ML VIAL IV ONE (23:45)
== END 2023-09-15 03:32 | disposition home or self-care (01) ==
LOC: COL.ER 23:31
PROVIDERS: Emergency Medicine
DX: J32.9 Chronic sinusitis, unspecified (principal); E86.0 Dehydration; E11.65 Type 2 diabetes mellitus with hyperglycemia; F17.210 Nicotine dependence, cigarettes, uncomplicated; Z79.4 Long term (current) use of insulin; Z91.040 Latex allergy status; Z88.0 Allergy status to penicillin; Z88.2 Allergy status to sulfonamides
CPT/HCPCS: J1815; J2405; J7120; Q9967

== ENCOUNTER 2023-09-20 01:07 | Emergency (ER) | payer OTHER ==
[~2023-09-20] VITALS: Ht 170.2 cm; Wt 59.1 kg
[2023-09-20 01:17] VITALS: TEMP 98.1
[2023-09-20] MEDS ORDERED: LR 1,000 ML IV ONE ×2 (01:30→02:15)
[2023-09-20] MEDS ORDERED: diphenhydrAMINE 50 MG/ML 1 ML VIAL IV ONE (01:30)
[2023-09-20 01:49] LABS: BASO % 0.5 % (0.0-2.0); EOS # 0.2 K/mm3 (0.0-0.7); EOS % 3.6 % (0.0-4.0); GRAN # 2.9 K/mm3 (1.4-6.5); GRAN % 48.6 % (42.2-75.2); HEMOGLOBIN 10.8 g/dl (12.5-16.0); LYMPH # 2.4 K/mm3 (1.2-3.4); LYMPH % 40.2 % (20.0-51.0); MEAN CELL VOLUME 80 fl (80.0-100.0); MEAN CORPUSCULAR HEMOGLOBIN 24 pg (27-31); MEAN CORPUSCULAR HGB CONC 30 g/dl (33.0-37.0); MEAN PLATELET VOLUME 10.3 fl (7.4-10.4); MONO # 0.4 K/mm3 (0.1-0.6); MONO % 6.8 % (1.7-9.3); PLATELET COUNT 244 K/mm3 (130-400); REDCELL DISTRIBUTION WIDTH-CV 17.2 % (11.5-14.5)
[2023-09-20 01:59] LABS: COLLECTION METHOD CLEAN CATCH
[2023-09-20 02:01] LABS: ACETONE,SERUM NEGATIVE
[2023-09-20 02:02] LABS: PH 5.5 (5.0-8.5); URINE APPEARANCE CLEAR (CLEAR/HAZY); URINE BLOOD NEGATIVE (NEGATIVE); URINE COLOR YELLOW (YELLOW); URINE GLUCOSE 3+ (NEGATIVE); URINE KETONE NEGATIVE (NEGATIVE); URINE NITRATE NEGATIVE (NEGATIVE); URINE PROTEIN(semi-quant) NEGATIVE (NEGATIVE); URINE UROBILINOGEN 0.2 E.U/dL (0.2-1.0)
[2023-09-20 02:04] LABS: HEMATOCRIT 36.2 % (37.0-47.0)
[2023-09-20 02:08] LABS: ALANINE AMINOTRANSFERASE 11 U/L (0-55); ALBUMIN 3.1 g/dL (3.5-5.0); ALKALINE PHOSPHATASE 98 U/L (40-150); ANION GAP 13 mmol/L (7-16); AST,SGOT 11 U/L (5-34); BILIRUBIN,TOTAL 0.1 mg/dL (0.2-1.2); BLOOD UREA NITROGEN 18 mg/dL (10-20); CALCIUM 9.1 mg/dL (8.4-10.2); CHLORIDE 98 mEq/L (98-107); CREATININE, serum 0.85 mg/dL (0.57-1.11); LIPASE 47 U/L (8-78); SODIUM 135 mEq/L (136-145); TOTAL PROTEIN 7.7 g/dl (6.2-8.1)
[2023-09-20 02:10] LABS: GLUCOSE 463 mg/dL (70-99)
[2023-09-20] MEDS ORDERED: Insulin Regular Human (NovoLIN R/HumuLIN R) IV ONE (02:15)
[2023-09-20 03:14] VITALS: BP 175/99; PULSE 106
== END 2023-09-20 03:14 | disposition home or self-care (01) ==
LOC: COL.ER 01:07
PROVIDERS: Emergency Medicine
DX: E11.65 Type 2 diabetes mellitus with hyperglycemia (principal); E86.0 Dehydration; Z79.4 Long term (current) use of insulin; Z91.040 Latex allergy status
CPT/HCPCS: J1200; J1815; J2765; J7120

== ENCOUNTER 2023-09-29 22:07 | Emergency (ER) | payer OTHER ==
[~2023-09-29] VITALS: Ht 170.2 cm; Wt 59.1 kg
[2023-09-29 22:14] VITALS: TEMP 98.9
[2023-09-29] MEDS ORDERED: Ondansetron 4 MG/2 ML VIAL IV ONE (22:30)
[2023-09-29] MEDS ORDERED: LR 1,000 ML IV ONE ×2 (22:30→23:15)
[2023-09-29 22:40] LABS: BASO % 0.5 % (0.0-2.0); EOS # 0.2 K/mm3 (0.0-0.7); EOS % 3.9 % (0.0-4.0); GRAN % 49.1 % (42.2-75.2); HEMATOCRIT 39.2 % (37.0-47.0); HEMOGLOBIN 11.7 g/dl (12.5-16.0); LYMPH # 2.4 K/mm3 (1.2-3.4); LYMPH % 39.6 % (20.0-51.0); MEAN CELL VOLUME 81 fl (80.0-100.0); MEAN CORPUSCULAR HEMOGLOBIN 24 pg (27-31); MEAN CORPUSCULAR HGB CONC 30 g/dl (33.0-37.0); MEAN PLATELET VOLUME 11.1 fl (7.4-10.4); MONO # 0.4 K/mm3 (0.1-0.6); MONO % 6.7 % (1.7-9.3); PLATELET COUNT 352 K/mm3 (130-400); RED BLOOD COUNT 4.85 M/mm3 (4.10-5.30); REDCELL DISTRIBUTION WIDTH-CV 17.4 % (11.5-14.5)
[2023-09-29 22:52] LABS: ACETONE,SERUM NEGATIVE
[2023-09-29 22:59] LABS: ALANINE AMINOTRANSFERASE 13 U/L (0-55); ALBUMIN 3.6 g/dL (3.5-5.0); ALKALINE PHOSPHATASE 136 U/L (40-150); ANION GAP 13 mmol/L (7-16); AST,SGOT 11 U/L (5-34); BILIRUBIN,TOTAL 0.1 mg/dL (0.2-1.2); BLOOD UREA NITROGEN 21 mg/dL (10-20); CALCIUM 9.6 mg/dL (8.4-10.2); CHLORIDE 95 mEq/L (98-107); CREATININE, serum 1.08 mg/dL (0.57-1.11); LIPASE 58 U/L (8-78); POTASSIUM 4.4 mEq/L (3.5-4.5); SODIUM 133 mEq/L (136-145); TOTAL PROTEIN 8.4 g/dl (6.2-8.1)
[2023-09-29 23:01] LABS: GLUCOSE 675 mg/dL (70-99)
[2023-09-29 23:32] LABS: COLLECTION METHOD CLEAN CATCH
[2023-09-29 23:43] LABS: URINE APPEARANCE CLEAR (CLEAR/HAZY); URINE BLOOD NEGATIVE (NEGATIVE); URINE COLOR YELLOW (YELLOW); URINE GLUCOSE 3+ (NEGATIVE); URINE KETONE NEGATIVE (NEGATIVE); URINE NITRATE NEGATIVE (NEGATIVE); URINE PROTEIN(semi-quant) NEGATIVE (NEGATIVE); URINE UROBILINOGEN 0.2 E.U/dL (0.2-1.0)
[2023-09-29] MEDS ORDERED: Insulin Regular Human (NovoLIN R/HumuLIN R) SQ ONE (23:45)
[2023-09-29 23:47] LABS: TRICYCLIC ANTIDEPRESS URINE NEGATIVE (NEGATIVE)
[2023-09-30 00:20] VITALS: BP 145/97; PULSE 110
== END 2023-09-30 00:20 | disposition home or self-care (01) ==
LOC: COL.ER 22:07
PROVIDERS: Emergency Medicine
DX: E11.65 Type 2 diabetes mellitus with hyperglycemia (principal); Z91.040 Latex allergy status; Z79.4 Long term (current) use of insulin
CPT/HCPCS: J1815; J2405; J7120

== ENCOUNTER 2023-10-06 19:22 | Emergency (ER) | payer OTHER ==
[~2023-10-06] VITALS: Ht 170.2 cm; Wt 59.1 kg
[2023-10-06 19:27] VITALS: TEMP 98.4
[2023-10-06] MEDS ORDERED: NS 1,000 ML IV ONE ×2 (19:45→20:30)
[2023-10-06 19:58] LABS: BASO % 0.3 % (0.0-2.0); EOS # 0.2 K/mm3 (0.0-0.7); EOS % 3.1 % (0.0-4.0); GRAN % 60.4 % (42.2-75.2); HEMATOCRIT 37.2 % (37.0-47.0); HEMOGLOBIN 11.3 g/dl (12.5-16.0); LYMPH % 30.5 % (20.0-51.0); MEAN CELL VOLUME 80 fl (80.0-100.0); MEAN CORPUSCULAR HEMOGLOBIN 24 pg (27-31); MEAN CORPUSCULAR HGB CONC 30 g/dl (33.0-37.0); MEAN PLATELET VOLUME 10.9 fl (7.4-10.4); MONO # 0.4 K/mm3 (0.1-0.6); MONO % 5.5 % (1.7-9.3); PLATELET COUNT 287 K/mm3 (130-400); RED BLOOD COUNT 4.65 M/mm3 (4.10-5.30); REDCELL DISTRIBUTION WIDTH-CV 16.9 % (11.5-14.5)
[2023-10-06 20:14] LABS: ALANINE AMINOTRANSFERASE 15 U/L (0-55); ALBUMIN 3.5 g/dL (3.5-5.0); ALKALINE PHOSPHATASE 106 U/L (40-150); ANION GAP 14 mmol/L (7-16); AST,SGOT 11 U/L (5-34); BILIRUBIN,TOTAL 0.2 mg/dL (0.2-1.2); BLOOD UREA NITROGEN 21 mg/dL (10-20); CALCIUM 9.4 mg/dL (8.4-10.2); CHLORIDE 99 mEq/L (98-107); CREATININE, serum 1.01 mg/dL (0.57-1.11); LIPASE 81 U/L (8-78); POTASSIUM 4.1 mEq/L (3.5-4.5); SODIUM 137 mEq/L (136-145); TOTAL PROTEIN 8.2 g/dl (6.2-8.1)
[2023-10-06 20:18] LABS: COLLECTION METHOD CLEAN CATCH
[2023-10-06 20:24] LABS: PH 5.5 (5.0-8.5); URINE APPEARANCE CLEAR (CLEAR/HAZY); URINE BLOOD NEGATIVE (NEGATIVE); URINE COLOR YELLOW (YELLOW); URINE GLUCOSE 3+ (NEGATIVE); URINE KETONE NEGATIVE (NEGATIVE); URINE NITRATE NEGATIVE (NEGATIVE); URINE PROTEIN(semi-quant) NEGATIVE (NEGATIVE); URINE UROBILINOGEN 0.2 E.U/dL (0.2-1.0)
[2023-10-06 20:25] LABS: GLUCOSE 553 mg/dL (70-99); TROPONIN-I < 0.010 ng/mL (0.00-0.033)
[2023-10-06] MEDS ORDERED: Insulin Regular Human (NovoLIN R/HumuLIN R) IV ONE (20:30)
[2023-10-06] MEDS ORDERED: Ketorolac 30 MG/ML VIAL IV ONE (20:30)
[2023-10-06 22:53] VITALS: BP 126/72; PULSE 99
== END 2023-10-06 22:53 | disposition home or self-care (01) ==
LOC: COL.ER 19:22
PROVIDERS: Nurse Practitioner Primary Care
DX: E11.65 Type 2 diabetes mellitus with hyperglycemia (principal); Z79.4 Long term (current) use of insulin; Z91.040 Latex allergy status
CPT/HCPCS: J1815; J1885; J7030

== ENCOUNTER 2023-10-31 21:23 | Emergency (ER) | payer OTHER ==
[~2023-10-31] VITALS: Ht 170.2 cm; Wt 65.9 kg
[2023-10-31 21:27] VITALS: TEMP 98.8
[2023-10-31] MEDS ORDERED: LR 1,000 ML IV ONE ×2 (22:00→23:15)
[2023-10-31 22:43] LABS: BASO % 0.4 % (0.0-2.0); EOS # 0.2 K/mm3 (0.0-0.7); EOS % 3.8 % (0.0-4.0); GRAN # 2.7 K/mm3 (1.4-6.5); GRAN % 51.5 % (42.2-75.2); HEMATOCRIT 39.4 % (37.0-47.0); HEMOGLOBIN 12.5 g/dl (12.5-16.0); LYMPH % 37.1 % (20.0-51.0); MEAN CELL VOLUME 82 fl (80.0-100.0); MEAN CORPUSCULAR HEMOGLOBIN 26 pg (27-31); MEAN CORPUSCULAR HGB CONC 32 g/dl (33.0-37.0); MONO # 0.4 K/mm3 (0.1-0.6); PLATELET COUNT 289 K/mm3 (130-400); RED BLOOD COUNT 4.78 M/mm3 (4.10-5.30); REDCELL DISTRIBUTION WIDTH-CV 17.7 % (11.5-14.5)
[2023-10-31 22:48] LABS: COLLECTION METHOD CLEAN CATCH
[2023-10-31 22:52] LABS: PH 5.5 (5.0-8.5); URINE APPEARANCE CLEAR (CLEAR/HAZY); URINE BLOOD NEGATIVE (NEGATIVE); URINE COLOR YELLOW (YELLOW); URINE GLUCOSE 3+ (NEGATIVE); URINE KETONE NEGATIVE (NEGATIVE); URINE NITRATE NEGATIVE (NEGATIVE); URINE PROTEIN(semi-quant) NEGATIVE (NEGATIVE); URINE UROBILINOGEN 0.2 E.U/dL (0.2-1.0)
[2023-10-31 22:56] LABS: ACETONE,SERUM NEGATIVE; ALANINE AMINOTRANSFERASE 15 U/L (0-55); ALBUMIN 3.3 g/dL (3.5-5.0); ALKALINE PHOSPHATASE 96 U/L (40-150); ANION GAP 12 mmol/L (7-16); AST,SGOT 10 U/L (5-34); BILIRUBIN,TOTAL 0.2 mg/dL (0.2-1.2); BLOOD UREA NITROGEN 15 mg/dL (10-20); CALCIUM 9.1 mg/dL (8.4-10.2); CHLORIDE 99 mEq/L (98-107); LIPASE 27 U/L (8-78); POTASSIUM 4.9 mEq/L (3.5-4.5); SODIUM 136 mEq/L (136-145); TOTAL PROTEIN 7.5 g/dl (6.2-8.1)
[2023-10-31 22:59] LABS: GLUCOSE 637 mg/dL (70-99)
[2023-10-31] MEDS ORDERED: Insulin Regular Human (NovoLIN R/HumuLIN R) SQ ONE (23:15)
[2023-10-31 23:37] VITALS: BP 136/79; PULSE 111
== END 2023-10-31 23:40 | disposition home or self-care (01) ==
LOC: COL.ER 21:23
PROVIDERS: Emergency Medicine
DX: E11.65 Type 2 diabetes mellitus with hyperglycemia (principal); Z79.4 Long term (current) use of insulin
CPT/HCPCS: J1815; J7120

== ENCOUNTER 2023-11-21 16:40 | Emergency (ER) | payer SELFPAY ==
[~2023-11-21] VITALS: Ht 170.2 cm; Wt 65.9 kg
[~2023-11-21 16:40] MED LIST changes: +ZITHROMAX Z PA250 MG PO
[2023-11-21 16:46] VITALS: TEMP 99.3
[2023-11-21] MEDS ORDERED: NS 1,000 ML IV ONE (17:15)
[2023-11-21 17:18] LABS: BASO % 0.3 % (0.0-2.0); EOS # 0.2 K/mm3 (0.0-0.7); EOS % 1.9 % (0.0-4.0); GRAN % 63.1 % (42.2-75.2); HEMOGLOBIN 12.9 g/dl (12.5-16.0); LYMPH # 2.3 K/mm3 (1.2-3.4); LYMPH % 28.3 % (20.0-51.0); MEAN CELL VOLUME 86 fl (80.0-100.0); MEAN CORPUSCULAR HEMOGLOBIN 27 pg (27-31); MEAN CORPUSCULAR HGB CONC 32 g/dl (33.0-37.0); MEAN PLATELET VOLUME 10.4 fl (7.4-10.4); MONO # 0.5 K/mm3 (0.1-0.6); PLATELET COUNT 258 K/mm3 (130-400); RED BLOOD COUNT 4.79 M/mm3 (4.10-5.30); REDCELL DISTRIBUTION WIDTH-CV 17.2 % (11.5-14.5)
[2023-11-21 17:22] LABS: COLLECTION METHOD CLEAN CATCH
[2023-11-21 17:27] LABS: PH 5.5 (5.0-8.5); URINE APPEARANCE CLEAR (CLEAR/HAZY); URINE BLOOD NEGATIVE (NEGATIVE); URINE COLOR YELLOW (YELLOW); URINE GLUCOSE 3+ (NEGATIVE); URINE KETONE 2+ (NEGATIVE); URINE NITRATE NEGATIVE (NEGATIVE); URINE PROTEIN(semi-quant) NEGATIVE (NEGATIVE); URINE UROBILINOGEN 0.2 E.U/dL (0.2-1.0)
[2023-11-21 17:27] LABS: ACETONE,SERUM SMALL
[2023-11-21 17:40] LABS: ALANINE AMINOTRANSFERASE 15 U/L (0-55); ALBUMIN 3.4 g/dL (3.5-5.0); ALKALINE PHOSPHATASE 121 U/L (40-150); ANION GAP 15 mmol/L (7-16); AST,SGOT 13 U/L (5-34); BILIRUBIN,TOTAL 0.3 mg/dL (0.2-1.2); BLOOD UREA NITROGEN 14 mg/dL (10-20); CALCIUM 9.6 mg/dL (8.4-10.2); CHLORIDE 99 mEq/L (98-107); CREATININE, serum 0.81 mg/dL (0.57-1.11); GLUCOSE 300 mg/dL (70-99); LIPASE 16 U/L (8-78); POTASSIUM 4.2 mEq/L (3.5-4.5); SODIUM 137 mEq/L (136-145); TOTAL PROTEIN 8.4 g/dl (6.2-8.1)
[2023-11-21 18:44] VITALS: BP 154/86; PULSE 105
== END 2023-11-21 18:44 | disposition home or self-care (01) ==
LOC: COL.ER 16:40
PROVIDERS: Physician Assistant
DX: E11.65 Type 2 diabetes mellitus with hyperglycemia (principal); B30.9 Viral conjunctivitis, unspecified; R00.0 Tachycardia, unspecified; Z91.040 Latex allergy status
CPT/HCPCS: J7030

== ENCOUNTER 2023-12-12 22:17 | Emergency (ER) | payer OTHER ==
[~2023-12-12] VITALS: Ht 167.6 cm; Wt 65.9 kg
[2023-12-12 22:22] VITALS: TEMP 98.6
[2023-12-12 22:38] LABS: BASO % 0.3 % (0.0-2.0); EOS # 0.3 K/mm3 (0.0-0.7); EOS % 4.1 % (0.0-4.0); GRAN # 3.6 K/mm3 (1.4-6.5); GRAN % 56.7 % (42.2-75.2); LYMPH % 31.6 % (20.0-51.0); MEAN CELL VOLUME 86 fl (80.0-100.0); MEAN CORPUSCULAR HEMOGLOBIN 28 pg (27-31); MEAN CORPUSCULAR HGB CONC 33 g/dl (33.0-37.0); MEAN PLATELET VOLUME 10.9 fl (7.4-10.4); MONO # 0.5 K/mm3 (0.1-0.6); MONO % 7.1 % (1.7-9.3); PLATELET COUNT 270 K/mm3 (130-400); RED BLOOD COUNT 4.27 M/mm3 (4.10-5.30); REDCELL DISTRIBUTION WIDTH-CV 15.9 % (11.5-14.5)
[2023-12-12 22:41] LABS: HEMATOCRIT 36.8 % (37.0-47.0)
[2023-12-12 22:52] LABS: ALBUMIN 3.2 g/dL (3.5-5.0); BILIRUBIN,TOTAL 0.3 mg/dL (0.2-1.2); CALCIUM 8.6 mg/dL (8.4-10.2); CREATININE, serum 0.85 mg/dL (0.57-1.11); POTASSIUM 4.2 mEq/L (3.5-4.5); TOTAL PROTEIN 7.3 g/dl (6.2-8.1)
[2023-12-12 22:58] LABS: TROPONIN-I 0.011 ng/mL (0.00-0.033)
[2023-12-12] MEDS ORDERED: NS 1,000 ML IV ONE (23:30)
[2023-12-13 02:41] VITALS: BP 143/80; PULSE 101
== END 2023-12-13 02:24 | disposition home or self-care (01) ==
LOC: COL.ER 22:17
PROVIDERS: Nurse Practitioner
DX: R00.2 Palpitations (principal); E11.65 Type 2 diabetes mellitus with hyperglycemia
CPT/HCPCS: J7030

== ENCOUNTER 2024-01-07 13:41 | Observation (INO) | payer OTHER ==
[~2024-01-07] VITALS: Ht 170.2 cm; Wt 63.9 kg
[2024-01-07] MEDS ORDERED: NS 1,000 ML IV ONE ×2 (16:15→20:00)
[2024-01-07 16:42] LABS: BASO % 0.3 % (0.0-2.0); EOS # 0.2 K/mm3 (0.0-0.7); GRAN # 6.1 K/mm3 (1.4-6.5); GRAN % 69.2 % (42.2-75.2); HEMATOCRIT 38.2 % (37.0-47.0); HEMOGLOBIN 12.5 g/dl (12.5-16.0); LYMPH # 1.8 K/mm3 (1.2-3.4); LYMPH % 20.3 % (20.0-51.0); MEAN CELL VOLUME 91 fl (80.0-100.0); MEAN CORPUSCULAR HEMOGLOBIN 30 pg (27-31); MEAN CORPUSCULAR HGB CONC 33 g/dl (33.0-37.0); MEAN PLATELET VOLUME 11.2 fl (7.4-10.4); MONO # 0.7 K/mm3 (0.1-0.6); MONO % 7.7 % (1.7-9.3); PLATELET COUNT 325 K/mm3 (130-400); RED BLOOD COUNT 4.19 M/mm3 (4.10-5.30)
[2024-01-07 16:45] LABS: ERYTHROCYTE SEDIMENTATION RATE 28 mm/hr (0-30)
[2024-01-07 16:49] LABS: PROTHROMBIN TIME 10.9 SECONDS (9.7-12.8)
[2024-01-07 16:59] LABS: ALANINE AMINOTRANSFERASE 16 U/L (0-55); ALBUMIN 3.5 g/dL (3.5-5.0); ALKALINE PHOSPHATASE 137 U/L (40-150); ANION GAP 20 mmol/L (7-16); AST,SGOT 16 U/L (5-34); BLOOD UREA NITROGEN 11 mg/dL (10-20); C-REACTIVE PROTEIN 6.58 mg/dL (0.00-0.50); CHLORIDE 98 mEq/L (98-107); CREATININE, serum 0.88 mg/dL (0.57-1.11); GLUCOSE 357 mg/dL (70-99); POTASSIUM 4.2 mEq/L (3.5-4.5); SODIUM 139 mEq/L (136-145); TOTAL PROTEIN 8.7 g/dl (6.2-8.1)
[2024-01-07 17:08] LABS: TROPONIN-I < 0.010 ng/mL (0.00-0.033)
[2024-01-07 17:25] LABS: BILIRUBIN,TOTAL 0.2 mg/dL (0.2-1.2)
[2024-01-07] MEDS ORDERED: Azithromycin 250 MG TAB PO ONE (17:45)
[2024-01-07] MEDS ORDERED: cefTRIAXone 1 G in Water For Injection,Sterile 10 ML IV ONE (17:45)
[2024-01-07 19:44] LABS: COLLECTION METHOD CLEAN CATCH
[2024-01-07 19:53] LABS: URINE APPEARANCE CLEAR (CLEAR/HAZY); URINE BLOOD 2+ (NEGATIVE); URINE COLOR YELLOW (YELLOW); URINE GLUCOSE 3+ (NEGATIVE); URINE KETONE 4+ (NEGATIVE); URINE NITRATE NEGATIVE (NEGATIVE); URINE PROTEIN(semi-quant) NEGATIVE (NEGATIVE); URINE UROBILINOGEN 0.2 E.U/dL (0.2-1.0)
[2024-01-07] MEDS ORDERED: Acetaminophen 325 MG TAB PO PRN (20:00)
[2024-01-07] MEDS ORDERED: NS 1,000 ML IV SCH (20:00)
[2024-01-07] MEDS ORDERED: Dextrose (Glucose) 15 GM (4 x 3.75 GM) Chewable TABLET PACK PO PRN (20:15)
[2024-01-07] MEDS ORDERED: Glucagon 1 MG VIAL IM PRN (20:15)
[2024-01-07] MEDS ORDERED: Dextrose 50% Water 25 GM/50 ML SYRINGE IV PRN (20:15)
[2024-01-07 21:00] VITALS: BP_SYST 128
[2024-01-07 21:50] VITALS: BP 128/84; PULSE 112; TEMP 97.5
--- NOTE | 2024-01-07 22:25 | NUR ---
PATIENT ADMITTED TO ROOM 358 BROUGHT UP IN WHEELCHAIR BY ED RN. PATIENT VS ARE:128/84BP, 112 HR, 97.5 TEMP 94% ON RA AND RR 20. SHE IS A&0 X 4 AND TALKATIVE. NASAL CONGESTION PROMINENT. PATIENT C/O OF 5/10 SINUS HEADACHE. EYES ARE RED AND "STINGY." QUAD SWAB PERFORMED IN ER NEGATIVE. NS RUNNING AT 150ML/HR IN LT FA. PATIENT DISCLOSES THAT HOUSE WAS TREATED SEVERAL WEEKS AGO FOR BED BUGS. HEAD TO TOE INSPECTION OF BOTH BODY AND CLOTHING REVEALED NO BEDBUGS.-WILL PLACE BELONGINGS IN SEALED PLASTIC BAG PRECAUTION. LT FOOT-PLANTAR ASPECT HAS A HEALED DIABETIC ULCER, HOWEVER, PATIENT C/O IT IS BECOMING TENDER AGAIN AND SITE LOOKS SLIGHTLY PINK. BG ACCUCHECK TO BE PERFORMED-PATIENT HYPERGLYCEMIC IN ED. CALL LIGHT WITHIN REACH, BED ALARM ON.
--- NOTE | 2024-01-07 22:25 | NUR ---
MEWS SCORE 3 UPON ADMISSION. CHARGE NOTIFIED. PATIENT ASYMPTOMATIC-IVF RUNNING 150ML/HR. CALL PLACED TO HOSPITALISTCOSTA. TELE ORDERS GIVEN.
--- NOTE | 2024-01-07 23:14 | NUR ---
CALL PLACED TO PIT AND AUXILIARIES SUPERVISOR INQUIRING ABOUT PRECAUTIONS-PATIENT DISCLOSED A BED-BUG INFESTATION 3WEEKS AGO AT HER HOME. RESIDENCE HAS BEEN TREATED AND NO NEW INFESTATION REPORTED BY PATIENT. HEAD TO TOE EXAMINATION-NO BED BUGS EVIDENT, BELONGINGS CHECKED WELL. HOUSE STATED NO PRECAUTIONS NEEDED.
[2024-01-08] VITALS (9 sets, daily range): BP systolic 108–155; BP diastolic 67–86; PULSE 100–111; TEMP 97.3–98
[2024-01-08] MEDS ORDERED: Insulin Lispro (HumaLOG) SQ SCH
--- NOTE | 2024-01-08 01:38 | NUR ---
D/T NASAL CONGESTION, PATIETN WILL DESAT TO 89-90 INTERMITTENTLY WHILE ASLEEP PATIENT FORGET TO OPEN MOUTH BREATH WHILE COPING WITH STUFFY NOSE. RECHECKED O2 CURRENTLY 94% WHILE TALKING.
[2024-01-08] MEDS ORDERED: Menthol Cough/Sore Throat LOZENGE MM PRN (02:15)
[2024-01-08 06:57] LABS: BASO % 0.3 % (0.0-2.0); EOS # 0.2 K/mm3 (0.0-0.7); EOS % 3.6 % (0.0-4.0); GRAN # 3.9 K/mm3 (1.4-6.5); GRAN % 60.4 % (42.2-75.2); LYMPH # 1.7 K/mm3 (1.2-3.4); LYMPH % 26.5 % (20.0-51.0); MEAN CELL VOLUME 90 fl (80.0-100.0); MEAN CORPUSCULAR HGB CONC 33 g/dl (33.0-37.0); MEAN PLATELET VOLUME 10.9 fl (7.4-10.4); MONO # 0.6 K/mm3 (0.1-0.6); MONO % 8.7 % (1.7-9.3); PLATELET COUNT 264 K/mm3 (130-400); RED BLOOD COUNT 3.29 M/mm3 (4.10-5.30); REDCELL DISTRIBUTION WIDTH-CV 14.2 % (11.5-14.5)
[2024-01-08 07:10] LABS: HEMATOCRIT 29.6 % (37.0-47.0); HEMOGLOBIN 9.7 g/dl (12.5-16.0); MEAN CORPUSCULAR HEMOGLOBIN 29 pg (27-31)
[2024-01-08 07:20] LABS: CALCIUM 8.3 mg/dL (8.4-10.2); CREATININE, serum 0.73 mg/dL (0.57-1.11); POTASSIUM 3.9 mEq/L (3.5-4.5)
[2024-01-08] MEDS ORDERED: Lisinopril 5 MG TAB PO SCH (09:00)
[2024-01-08] MEDS ORDERED: Azithromycin 500 MG in NS 250 ML IV SCH (09:00)
--- NOTE | 2024-01-08 10:39 | NUR ---
Initial visit attempt: Nurse with patient. Web Developer Programmer leaves card offering Spiritual Care along with God's blessings for healing.
[2024-01-08] MEDS ORDERED: HUMALOG100 U/ML SQ (12:40)
[2024-01-08] MEDS ORDERED: BASAGLAR K100 UNIT/1 SQ (12:41)
[2024-01-08] MEDS ORDERED: LEVAQUIN 5500 MG/TA1 PO (12:48)
--- NOTE | 2024-01-08 14:00 | NUR ---
THIS RN PROVIDED PATIENT WITH DISCHARGE EDUCATION AND INSTRUCTIONS. ALL QUESITONS ANSWERED. IV TO LEFT AC DISCONTINUED. PATIENT ESCORTED OFF UNIT AT APPROX 1400. ALL BELONGINGS WITH PATIENT.
--- NOTE | 2024-01-08 16:12 | NUR ---
Inventory Taker was unable to see patient prior to discharge. SW called to follow up and patient stated she was not feeling well but is going to go roll picker her antibiotics. Patient left her nutrition resources in the room so SW requested Dietitian to mail these to her home and include [employer]. Patient also is interested in applying for Medicaid and doing an FAA so B[facility] consulted [employer] Counselor.
[2024-01-08] MEDS ORDERED: cefTRIAXone 1 G in Water For Injection,Sterile 10 ML IV SCH (18:00)
== END 2024-01-08 14:00 | disposition home or self-care (01) ==
LOC: COL.ER 13:41 → MEDICAL 19:59
PROVIDERS: Emergency Medicine; Physician Assistant; ADMIT Internal Medicine
DX: J01.90 Acute sinusitis, unspecified (principal); B96.89 Other specified bacterial agents as the cause of diseases classified elsewhere; R00.0 Tachycardia, unspecified; E11.9 Type 2 diabetes mellitus without complications; I10 Essential (primary) hypertension; Z79.4 Long term (current) use of insulin; Z72.0 Tobacco use
CPT/HCPCS: G0378; J0456; J0696; J1815; J7030; J7050